=== PATIENT | male | born 1950 | race Caucasian/White ===

== ENCOUNTER 2017-01-03 18:19 | Emergency (ER) | payer BC, OTHER ==
[2017-01-03] MEDS ORDERED: SODIUM CHLORIDE 0.9% 1,000 ML IV STA ×3 (18:33→18:53)
[2017-01-03] MEDS ORDERED: MORPHINE SULFATE 4 MG/ML SYRINGE IV STA (18:33)
[2017-01-03] MEDS ORDERED: DIPH,PERTUS(ACELL)TETVAC-LF 0.5 ML VIAL IM ONE (18:34)
[2017-01-03 18:39] LABS: Glucose,Whole Blood 88 mg/dL (75-99)
--- NOTE | 2017-01-03 18:48 | XR ---
EXAMINATION TYPE: XR pelvis AP view DATE OF EXAM: 01/03/2017 6:45 PM COMPARISON: NONE HISTORY: Pain TECHNIQUE: Single view FINDINGS: Pelvic ring is intact. Proximal femurs and hip joints are intact. Sacroiliac joints are nor mal. IMPRESSION: Negative pelvis exam.
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
[2017-01-03] MEDS ORDERED: SODIUM CHLORIDE 0.9% 500 ML IV STA (18:53)
--- NOTE | 2017-01-03 18:58 | XR ---
EXAMINATION TYPE: XR chest 1V portable DATE OF EXAM: 01/03/2017 6:45 PM COMPARISON: 08/26/2015 HISTORY: Chest pain. Smoker. TECHNIQUE: Single frontal view of the chest is obtained. FINDINGS: Heart size is normal. There is coarsening of interstitial markings and more in the upper l obes. There are no hilar masses. Thoracic aorta is atheromatous. There are chest leads. There is no s ign of pleural effusion. IMPRESSION: Interstitial pulmonary infiltrates probably related to fibrosis that is worse than last exam. Normal heart.
[2017-01-03 19:03] LABS: Basophils % (A) 0 %; CH 32.7; CHCM 34.2; Eosinophils % (A) 0 %; HCT 47.7 % (39.0-53.0); HDW 2.52; HGB 16.2 gm/dL (13.0-17.5); Luc # (Auto) 0.16; Luc % (Auto) 1; Lymphocytes % (A) 6 %; MCH 32.7 pg (25.0-35.0); MCV 96.2 fL (80.0-100.0); Monocytes # (A) 0.7 k/uL (0-1.0); Monocytes % (A) 4 %; Neutrophils # (A) 15.2 k/uL (1.3-7.7); Neutrophils % (A) 89 %; RBC 4.95 m/uL (4.30-5.90); RDW 13.4 % (11.5-15.5); WBC 17.1 k/uL (3.8-10.6); WBC (Perox) 16.65
[2017-01-03 19:09] VITALS: TEMP 97.4
[2017-01-03 19:09] LABS: INR 1.1 (<1.1); Partial Thromboplastin Time 24.5 sec (22.0-30.0); Prothrombin Time 10.7 sec (9.0-12.0)
[2017-01-03 19:13] LABS: ALT 31 U/L (21-72); AST 28 U/L (17-59); Alcohol <10 mg/dL; Alkaline Phosphatase 113 U/L (38-126); Amylase 97 U/L (30-110); Anion Gap 10 mmol/L; Blood Urea Nitrogen 18 mg/dL (9-20); Calcium 9.3 mg/dL (8.4-10.2); Carbon Dioxide 24 mmol/L (22-30); Chloride 107 mmol/L (98-107); Glucose 94 mg/dL (74-99); Non-African American GFR(MDRD) >60 (>60 ml/min/1.73 sqM); Sodium 141 mmol/L (137-145); Total Bilirubin 1.7 mg/dL (0.2-1.3); Total Protein 7.5 g/dL (6.3-8.2)
[2017-01-03 19:22] LABS: Creatine Kinase 155 U/L (55-170)
[2017-01-03 19:35] LABS: Creatine Kinase MB 1.9 ng/mL (0.0-2.4); Troponin I <0.012 ng/mL (0.000-0.034)
[2017-01-03 19:43] VITALS: BP 136/71; PULSE 91; RESP 22
== END 2017-01-03 19:10 | disposition other institution (70) ==
LOC: EC 18:19
DX: T24.092A Burn of unspecified degree of multiple sites of left lower limb, except ankle and foot, initial encounter (principal); T24.091A Burn of unspecified degree of multiple sites of right lower limb, except ankle and foot, initial encounter; T21.05XA Burn of unspecified degree of buttock, initial encounter; T31.21 Burns involving 20-29% of body surface with 10-19% third degree burns; Y92.79 Other farm location as the place of occurrence of the external cause; Y99.0 Civilian activity done for income or pay; X08.8XXA Exposure to other specified smoke, fire and flames, initial encounter; Z86.73 Personal history of transient ischemic attack (TIA), and cerebral infarction without residual deficits; E78.5 Hyperlipidemia, unspecified; I25.2 Old myocardial infarction; F17.200 Nicotine dependence, unspecified, uncomplicated; Z23 Encounter for immunization; Z79.82 Long term (current) use of aspirin
CPT/HCPCS: 36415; 71010; 72170; 80053; 80320; 82150; 82550; 82553; 83690; 84484; 85025; 85610; 85730; 86850; 86900; 86901; 90471; 90715; 93005; 96360; 99291

== ENCOUNTER 2017-02-12 23:26 | Inpatient (IN) | payer MEDICARE, OTHER ==
[2017-02-12] MEDS ORDERED: SODIUM CHLORIDE 0.9% 1,000 ML IV STA (23:41)
[2017-02-13 00:15] LABS: ALT 24 U/L (21-72); AST 19 U/L (17-59); Alkaline Phosphatase 101 U/L (38-126); Anion Gap 8 mmol/L; Blood Urea Nitrogen 14 mg/dL (9-20); Carbon Dioxide 23 mmol/L (22-30); Chloride 107 mmol/L (98-107); Glucose 110 mg/dL (74-99); Magnesium 1.9 mg/dL (1.6-2.3); Non-African American GFR(MDRD) >60 (>60 ml/min/1.73 sqM); Potassium 4.4 mmol/L (3.5-5.1); Sodium 138 mmol/L (137-145); Total Bilirubin 0.6 mg/dL (0.2-1.3); Total Protein 7.4 g/dL (6.3-8.2)
[2017-02-13 00:18] LABS: Basophils % (A) 0 %; CH 32.1; CHCM 34.2; Eosinophils # (A) 0.1 k/uL (0-0.7); Eosinophils % (A) 1 %; HCT 36.2 % (39.0-53.0); HDW 2.96; Luc # (Auto) 0.27; Luc % (Auto) 3; Lymphocytes % (A) 30 %; MCH 31.3 pg (25.0-35.0); MCHC 33.2 g/dL (31.0-37.0); MCV 94.4 fL (80.0-100.0); Mean Platelet Volume 6.4; Monocytes # (A) 0.6 k/uL (0-1.0); Monocytes % (A) 6 %; Neutrophils % (A) 60 %; RBC 3.83 m/uL (4.30-5.90); WBC 10.1 k/uL (3.8-10.6); WBC (Perox) 9.36
[2017-02-13 00:24] LABS: Creatine Kinase 34 U/L (55-170)
--- NOTE | 2017-02-13 00:30 | ED ---
General Adult HPI - General Chief complaint: Shortness of Breath Stated complaint: SOB Time Seen by Provider: 02/12/17 23:41 Source: patient, RN notes reviewed, old records reviewed Mode of arrival: wheelchair Limitations: no limitations - History of Present Illness Initial comments: This is a 66-year-old male year fevers or shortness of breath cough and congestion. Patient has X remote history of smoking. Patient does admit to recent hospitalization greater than 1 week ago. Patient states that increasing shortness of breath and on and off chest pain that started today. Worse with exertion. Mild chills no noted fevers. No sweating. No travel history, again patient was recently hospitalized so multiple sick contacts - Related Data Home Medications Medication Instructions Recorded Confirmed Aspirin 325 mg PO HS 01/03/17 02/12/17 Atorvastatin [Lipitor] 10 mg PO HS 01/03/17 02/12/17 HYDROcodone/APAP 10-325MG [[place] 1 tab PO Q4H PRN 02/12/17 02/12/17 10-325] Allergies Allergy/AdvReac Type Severity Reaction Status Date / Time No Known Allergies Allergy Verified 02/12/17 23:53 Review of Systems ROS Statement: Those systems with pertinent positive or pertinent negative responses have been documented in the HPI. ROS Other: All systems not noted in ROS Statement are negative. Past Medical History Past Medical History: CVA/TIA, Hyperlipidemia, Hypertension, Myocardial Infarction ([place]) History of Any Multi-Drug Resistant Organisms: None Reported Past Surgical History: Appendectomy, Orthopedic Surgery Additional Past Surgical History / Comment(s): thumb Past Psychological History: No Psychological Hx Reported Smoking Status: Current every day smoker Past Alcohol Use History: None Reported Past Drug Use History: None Reported General Exam Limitations: no limitations General appearance: alert, in no apparent distress, anxious Head exam: Present: atraumatic, normocephalic, normal inspection Eye exam: Present: normal appearance, PERRL, EOMI. Absent: scleral icterus, conjunctival injection, periorbital swelling ENT exam: Present: normal exam, mucous membranes moist Neck exam: Present: normal inspection. Absent: tenderness, meningismus, lymphadenopathy Respiratory exam: Present: normal lung sounds bilaterally. Absent: respiratory distress, wheezes, rales, rhonchi, stridor Cardiovascular Exam: Present: regular rate, normal rhythm, normal heart sounds. Absent: systolic murmur, diastolic murmur, rubs, gallop, clicks GI/Abdominal exam: Present: soft, normal bowel sounds. Absent: distended, tenderness, guarding, rebound, rigid Extremities exam: Present: normal inspection, full ROM, normal capillary refill. Absent: tenderness, pedal edema, joint swelling, calf tenderness Back exam: Present: normal inspection Neurological exam: Present: alert, oriented X3, CN II-XII intact Psychiatric exam: Present: normal affect, normal mood Skin exam: Present: warm, dry, intact, normal color. Absent: rash Course Vital Signs 02/12/17 02/12/17 02/13/17 23:36 23:57 00:38 Temperature 98.3 F Pulse Rate 82 73 77 Respiratory 20 20 20 Rate Blood Pressure 129/68 140/87 O2 Sat by Pulse 99 99 Oximetry - Reevaluation(s) Reevaluation #1: 02/13/17 00:56 Patient's in no acute respiratory distress EKG Findings - EKG Comments: EKG Findings:: EKG shows normal sinus rhythm rate of 160, ND 90, QRS 394 Medical Decision Making - Medical Decision Making 66-year-old year for evaluation, history of smoking, coming with shortness of breath. Patient with cough congestion, positive pneumonia, patient recent hospitalization greater than 6 weeks left a week ago. Patient be admitted for broad-spectrum antibiotics nosocomial pneumonia and admitted to the hospital. - Lab Data Result diagrams: 02/12/17 23:50 02/12/17 23:50 Lab Results 02/12/17 02/12/17 02/12/17 Range/Units 23:50 23:50 23:50 WBC 10.1 (3.8-10.6) k/uL RBC 3.83 L (4.30-5.90) m/uL Hgb 12.0 L D (13.0-17.5) gm/dL Hct 36.2 L (39.0-53.0) % MCV 94.4 (80.0-100.0) fL MCH 31.3 (25.0-35.0) pg MCHC 33.2 (31.0-37.0) g/dL RDW 14.0 (11.5-15.5) % Plt Count 431 (150-450) k/uL Neutrophils % 60 % Lymphocytes % 30 % Monocytes % 6 % Eosinophils % 1 % Basophils % 0 % Neutrophils # 6.0 (1.3-7.7) k/uL Lymphocytes # 3.0 (1.0-4.8) k/uL Monocytes # 0.6 (0-1.0) k/uL Eosinophils # 0.1 (0-0.7) k/uL Basophils # 0.0 (0-0.2) k/uL Sodium 138 (137-145) mmol/L Potassium 4.4 (3.5-5.1) mmol/L Chloride 107 (98-107) mmol/L Carbon Dioxide 23 (22-30) mmol/L Anion Gap 8 mmol/L BUN 14 (9-20) mg/dL Creatinine 0.92 (0.66-1.25) mg/dL Est GFR (MDRD) Af Amer >60 (>60 ml/min/1.73 sqM) Est GFR (MDRD) Non-Af >60 (>60 ml/min/1.73 sqM) Glucose 110 H (74-99) mg/dL Calcium 9.0 (8.4-10.2) mg/dL Magnesium 1.9 (1.6-2.3) mg/dL Total Bilirubin 0.6 (0.2-1.3) mg/dL AST 19 (17-59) U/L ALT 24 (21-72) U/L Alkaline Phosphatase 101 (38-126) U/L Total Creatine Kinase 34 L (55-170) U/L CK-MB (CK-2) 0.4 (0.0-2.4) ng/mL CK-MB (CK-2) Rel Index 1.2 Troponin I <0.012 (0.000-0.034) ng/mL NT-Pro-B Natriuret Pep pg/mL Total Protein 7.4 (6.3-8.2) g/dL Albumin 3.4 L (3.5-5.0) g/dL 02/12/17 Range/Units 23:50 WBC (3.8-10.6) k/uL RBC (4.30-5.90) m/uL Hgb (13.0-17.5) gm/dL Hct (39.0-53.0) % MCV (80.0-100.0) fL MCH (25.0-35.0) pg MCHC (31.0-37.0) g/dL RDW (11.5-15.5) % Plt Count (150-450) k/uL Neutrophils % % Lymphocytes % % Monocytes % % Eosinophils % % Basophils % % Neutrophils # (1.3-7.7) k/uL Lymphocytes # (1.0-4.8) k/uL Monocytes # (0-1.0) k/uL Eosinophils # (0-0.7) k/uL Basophils # (0-0.2) k/uL Sodium (137-145) mmol/L Potassium (3.5-5.1) mmol/L Chloride (98-107) mmol/L Carbon Dioxide (22-30) mmol/L Anion Gap mmol/L BUN (9-20) mg/dL Creatinine (0.66-1.25) mg/dL Est GFR (MDRD) Af Amer (>60 ml/min/1.73 sqM) Est GFR (MDRD) Non-Af (>60 ml/min/1.73 sqM) Glucose (74-99) mg/dL Calcium (8.4-10.2) mg/dL Magnesium (1.6-2.3) mg/dL Total Bilirubin (0.2-1.3) mg/dL AST (17-59) U/L ALT (21-72) U/L Alkaline Phosphatase (38-126) U/L Total Creatine Kinase (55-170) U/L CK-MB (CK-2) (0.0-2.4) ng/mL CK-MB (CK-2) Rel Index Troponin I (0.000-0.034) ng/mL NT-Pro-B Natriuret Pep 622 pg/mL Total Protein (6.3-8.2) g/dL Albumin (3.5-5.0) g/dL - Radiology Data Radiology results: report reviewed (Chest x-ray positive for pneumonia), image reviewed Disposition Clinical Impression: Nosocomial pneumonia Disposition: ADMITTED IP TO THIS HOSP Condition: Fair Referrals: None,Stated [Primary Care Provider] - 1-2 days
[2017-02-13 00:37] LABS: Creatine Kinase MB 0.4 ng/mL (0.0-2.4); Troponin I <0.012 ng/mL (0.000-0.034)
--- NOTE | 2017-02-13 00:46 | XR ---
EXAM: XR Chest, 2 Views CLINICAL HISTORY: Reason: difficulty breathing TECHNIQUE: Frontal and lateral views of the chest. COMPARISON: 01/03/17. FINDINGS: Lungs: Patchy coarse interstitial and airspace opacities. Pleural space: Unremarkable. No pneumothorax. Heart: Stable cardiomediastinal silhouette. Mediastinum: See above. Bones/joints: Stable. IMPRESSION: Patchy coarse interstitial and airspace opacities. Correlate clinically for acute on chronic inflammatory/infectious process or edema.
[2017-02-13] MEDS ORDERED: IPRATROPIUM-ALBUTEROL 3 ML NEB INHALATION STA (00:53)
[2017-02-13] MEDS ORDERED: IPRATROPIUM-ALBUTEROL 3 ML NEB INHALATION PRN (00:53)
[2017-02-13] MEDS ORDERED: LEVOFLOXACIN 750MG-D5W PMX 750 MG in DEXTROSE/WATER 1 150ML.BAG IVPB STA (00:53)
[2017-02-13] MEDS ORDERED: PNEUMONIA PROTOCOL UTILIZED 1 EACH MISC PO PRN (00:53)
[2017-02-13] MEDS ORDERED: PIPERACILLIN-TAZOBACTAM 3.375 GM in DEXTROSE/WATER 1 50ML.BAG IVPB STA (00:53)
[2017-02-13 00:55] LABS: Partial Thromboplastin Time 26.5 sec (22.0-30.0); Prothrombin Time 9.8 sec (9.0-12.0)
[2017-02-13] MEDS: SODIUM CHLORIDE 0.9% 1,000 ML IV SCH ×3 (02:43→22:28)
[2017-02-13] MEDS: ENOXAPARIN 40 MG/0.4 ML SYRINGE SQ SCH (08:40)
[2017-02-13] MEDS: HYDROcodone/APAP 10-325MG 1 EACH TAB PO PRN ×4 (08:41→22:22)
[2017-02-13] MEDS: LORATADINE 10 MG TAB PO SCH (09:35)
[2017-02-13] MEDS: DOCUSATE 100 MG CAP PO SCH ×2 (09:35→22:24)
[2017-02-13] MEDS: PIPERACILLIN-TAZOBACTAM 3.375 GM in DEXTROSE/WATER 1 50ML.BAG IVPB SCH ×2 (11:53→22:23)
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
[2017-02-13] MEDS ORDERED: ASPIRIN 325 MG TAB PO SCH (21:00)
[2017-02-13] MEDS ORDERED: ATORVASTATIN 10 MG TAB PO SCH (21:00)
[2017-02-14] MEDS: PIPERACILLIN-TAZOBACTAM 3.375 GM in DEXTROSE/WATER 1 50ML.BAG IVPB SCH ×3 (03:56→12:16)
[2017-02-14] MEDS: HYDROcodone/APAP 10-325MG 1 EACH TAB PO PRN ×3 (04:02→12:14)
[2017-02-14] MEDS: SODIUM CHLORIDE 0.9% 1,000 ML IV SCH (08:15)
[2017-02-14] MEDS: LORATADINE 10 MG TAB PO SCH (08:21)
[2017-02-14] MEDS: ENOXAPARIN 40 MG/0.4 ML SYRINGE SQ SCH (08:21)
[2017-02-14] MEDS: DOCUSATE 100 MG CAP PO SCH (08:22)
[2017-02-14 10:43] VITALS: BMI 23.0
[2017-02-14] MEDS ORDERED: LEVOFLOXACIN 750 MG TAB PO STA (12:07)
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
--- NOTE | 2017-02-14 14:12 | XR ---
EXAMINATION TYPE: XR chest 2V DATE OF EXAM: 02/14/2017 2:03 PM COMPARISON: 02/13/2017 TECHNIQUE: PA and lateral views submitted. HISTORY: Shortness of breath FINDINGS: Patchy persistent predominantly interstitial coarsening is seen bilaterally greater in the upper lung zones. Emphysematous changes are suggested in the apices of the lungs greater on the right. No acute infiltrate. Curvature of the spine and atherosclerotic change aorta. Degenerative change of the spine. IMPRESSION: 1. Stable coarsened interstitium correlate for chronic interstitial lung disease with suspected emphy sematous changes involving the lung apices. No consolidative pneumonia. Findings could been the basis of chronic interstitial lung disease such as fibrosis. Correlate clinically.
[2017-02-14 16:09] VITALS: BP 110/58; PULSE 81; RESP 20; TEMP 97.8
[2017-02-14] MEDS ORDERED: LEVOFLOXACIN 750MG-D5W PMX 750 MG in DEXTROSE/WATER 1 150ML.BAG IVPB SCH (23:00)
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
== END 2017-02-14 16:23 | disposition home health service (06) | DRG 190 ==
LOC: EC 23:26 → 5MS5E 02-13 00:53
PROVIDERS: ADMIT Family Medicine; ATTEND Family Medicine
DX: J44.0 Chronic obstructive pulmonary disease with (acute) lower respiratory infection (principal); J18.9 Pneumonia, unspecified organism; R00.0 Tachycardia, unspecified; I10 Essential (primary) hypertension; I25.2 Old myocardial infarction; E78.5 Hyperlipidemia, unspecified; T24.201D Burn of second degree of unspecified site of right lower limb, except ankle and foot, subsequent encounter; T24.202D Burn of second degree of unspecified site of left lower limb, except ankle and foot, subsequent encounter; T24.302D Burn of third degree of unspecified site of left lower limb, except ankle and foot, subsequent encounter; T24.301D Burn of third degree of unspecified site of right lower limb, except ankle and foot, subsequent encounter; T21.25XD Burn of second degree of buttock, subsequent encounter; T21.35XD Burn of third degree of buttock, subsequent encounter; R68.83 Chills (without fever); Z79.899 Other long term (current) drug therapy; Z86.73 Personal history of transient ischemic attack (TIA), and cerebral infarction without residual deficits; Z79.891 Long term (current) use of opiate analgesic; Z79.82 Long term (current) use of aspirin; Z87.891 Personal history of nicotine dependence; Z90.49 Acquired absence of other specified parts of digestive tract; Z98.890 Other specified postprocedural states; Z71.3 Dietary counseling and surveillance; X01 Exposure to uncontrolled fire, not in building or structure; Y95 Nosocomial condition
CPT/HCPCS: 36415; 71020; 80053; 82550; 82553; 83735; 83880; 84484; 85025; 85379; 85610; 85730; 87040; 93005; 96360; 99285

== ENCOUNTER 2017-03-01 21:40 | Emergency (ER) | payer MEDICARE, OTHER ==
[2017-03-01 23:28] LABS: Basophils # (A) 0.1 k/uL (0-0.2); Basophils % (A) 1 %; CH 30.6; CHCM 32.8; Eosinophils # (A) 0.4 k/uL (0-0.7); Eosinophils % (A) 4 %; HCT 36.5 % (39.0-53.0); HDW 2.81; HGB 11.9 gm/dL (13.0-17.5); Luc # (Auto) 0.28; Luc % (Auto) 3; Lymphocytes # (A) 2.9 k/uL (1.0-4.8); Lymphocytes % (A) 27 %; MCH 30.4 pg (25.0-35.0); MCHC 32.4 g/dL (31.0-37.0); MCV 93.6 fL (80.0-100.0); Mean Platelet Volume 6.2; Monocytes # (A) 0.7 k/uL (0-1.0); Monocytes % (A) 7 %; Neutrophils # (A) 6.4 k/uL (1.3-7.7); Neutrophils % (A) 59 %; WBC 10.8 k/uL (3.8-10.6); WBC (Perox) 11.38
[2017-03-01 23:36] LABS: Prothrombin Time 10.1 sec (9.0-12.0)
[2017-03-01 23:41] LABS: ALT 20 U/L (21-72); AST 16 U/L (17-59); Alkaline Phosphatase 101 U/L (38-126); Anion Gap 13 mmol/L; Blood Urea Nitrogen 14 mg/dL (9-20); Carbon Dioxide 19 mmol/L (22-30); Chloride 108 mmol/L (98-107); Glucose 107 mg/dL (74-99); Non-African American GFR(MDRD) >60 (>60 ml/min/1.73 sqM); Potassium 4.5 mmol/L (3.5-5.1); Sodium 140 mmol/L (137-145); Total Bilirubin 0.4 mg/dL (0.2-1.3); Total Protein 7.5 g/dL (6.3-8.2)
[2017-03-01 23:48] LABS: Creatine Kinase 35 U/L (55-170)
--- NOTE | 2017-03-01 23:51 | XR ---
EXAM: XR Chest, 2 Views CLINICAL HISTORY: Reason: difficulty breathing TECHNIQUE: Frontal and lateral views of the chest. COMPARISON: 02/14/17, 02/13/17, 01/03/17. FINDINGS: Lungs: There is again coarsening of the interstitial markings throughout, along with mild biapical pleural-parenchymal thickening. No superimposed infiltrate. Pleural space: Unremarkable. No pneumothorax. Heart: Unremarkable. No cardiomegaly. Mediastinum: Stable. Mild aortic arch calcification. Bones/joints: Stable including degenerative changes. IMPRESSION: Stable radiographic appearance of the chest including previously noted prominent interstitial markings, which again suggests a component of chronic interstitial lung disease. No new superimposed acute process seen.
[2017-03-01] MEDS ORDERED: ALBUTEROL NEBULIZED 2.5 MG/3 ML INHALATION STA (23:55)
[2017-03-01 23:59] LABS: Creatine Kinase MB 0.5 ng/mL (0.0-2.4)
[2017-03-02 00:01] LABS: Troponin I <0.012 ng/mL (0.000-0.034)
[2017-03-02 00:14] VITALS: RESP 18
[2017-03-02] MEDS ORDERED: predniSONE 20 MG TAB PO STA (01:47)
--- NOTE | 2017-03-02 01:47 | ED ---
SOB HPI - General Chief Complaint: Shortness of Breath Stated Complaint: SOB Time Seen by Provider: 03/01/17 22:46 Source: patient Mode of arrival: ambulatory Limitations: no limitations - History of Present Illness Initial Comments: This patient is 66-year-old man who presents to be evaluated for shortness of breath and cough. Patient states this been going on for couple of days now. Patient is concerned about possibility of pneumonia and states that he had just been treated for pneumonia. Patient states that he did quit smoking approximately 10 weeks ago after he had been admitted in the hospital for severe sidhu to his legs. Patient is denying fever or chills, pain in the chest , New pain or swelling in the legs. MD Complaint: shortness of breath, cough -: days(s) Severity: moderate Consistency: constant Improves With: nothing Worsens With: nothing Associated Symptoms: cough Treatments Prior to Arrival: none - Related Data Home Oxygen Therapy: No Home Medications Medication Instructions Recorded Confirmed Atorvastatin [Lipitor] 10 mg PO HS 01/03/17 03/01/17 HYDROcodone/APAP 10-325MG [Schurz 1 tab PO Q4H PRN 02/12/17 03/01/17 10-325] Docusate [Colace] 100 mg PO BID 02/13/17 03/01/17 Loratadine [Claritin] 10 mg PO DAILY 02/13/17 03/01/17 Previous Rx's Medication Instructions Recorded Albuterol Inhaler [Ventolin Hfa 1 - 2 puff INHALATION Q6HR PRN #1 03/02/17 Inhaler] inhaler predniSONE 20 mg PO BID #8 tab 03/02/17 Allergies Allergy/AdvReac Type Severity Reaction Status Date / Time No Known Allergies Allergy Verified 03/01/17 23:15 Review of Systems ROS Statement: Those systems with pertinent positive or pertinent negative responses have been documented in the HPI. ROS Other: All systems not noted in ROS Statement are negative. Constitutional: Denies: fever, chills, weakness Respiratory: Reports: cough, dyspnea, wheezes. Denies: hemoptysis, stridor Cardiovascular: Denies: chest pain, palpitations, orthopnea, edema, paroxysmal nocturnal dyspnea Gastrointestinal: Denies: abdominal pain, nausea, vomiting Genitourinary: Denies: dysuria Musculoskeletal: Denies: back pain Skin: Denies: rash Neurological: Denies: headache Past Medical History Past Medical History: CVA/TIA, Hyperlipidemia, Hypertension History of Any Multi-Drug Resistant Organisms: None Reported Past Surgical History: Appendectomy, Orthopedic Surgery Additional Past Surgical History / Comment(s): thumb Past Psychological History: No Psychological Hx Reported Smoking Status: Former smoker Past Alcohol Use History: None Reported Past Drug Use History: None Reported General Exam Limitations: no limitations General appearance: alert, in no apparent distress Head exam: Present: atraumatic, normocephalic Eye exam: Present: normal appearance. Absent: scleral icterus, conjunctival injection Respiratory exam: Present: wheezes. Absent: respiratory distress, rales, rhonchi, stridor, chest wall tenderness, decreased breath sounds, prolonged expiratory Cardiovascular Exam: Present: regular rate, normal rhythm, normal heart sounds. Absent: systolic murmur, diastolic murmur, rubs, gallop GI/Abdominal exam: Present: soft. Absent: tenderness, guarding, rebound, mass, pulsatile mass, hernia Extremities exam: Present: normal inspection, normal capillary refill, other ( Patient has had skin graft to the left leg and a harvest site from the right leg. There is no abnormal warmth or erythema, and the sites do appear to be healing without secondary infection. There is no calf tenderness or leg edema.) . Absent: pedal edema, calf tenderness Back exam: Absent: CVA tenderness (R), CVA tenderness (L) Neurological exam: Present: alert Skin exam: Present: warm, dry, intact, normal color. Absent: rash, cyanosis, diaphoretic, erythema, petechiae, pallor, mottled Course Vital Signs 03/01/17 03/01/17 03/02/17 22:14 23:10 00:13 Temperature 97.9 F 97.9 F Pulse Rate 83 76 Respiratory 22 20 18 Rate Blood Pressure 128/77 142/72 O2 Sat by Pulse 97 97 Oximetry 03/02/17 03/02/17 03/02/17 00:18 00:27 01:02 Temperature Pulse Rate 83 86 88 Respiratory 18 Rate Blood Pressure 133/80 O2 Sat by Pulse 97 Oximetry 03/02/17 02:38 Temperature 97.5 F L Pulse Rate 89 Respiratory 18 Rate Blood Pressure 111/63 O2 Sat by Pulse 97 Oximetry Medical Decision Making - Lab Data Result diagrams: 03/01/17 23:10 03/01/17 23:10 Lab Results 03/01/17 03/01/17 03/01/17 Range/Units 23:10 23:10 23:10 WBC 10.8 H (3.8-10.6) k/uL RBC 3.90 L (4.30-5.90) m/uL Hgb 11.9 L (13.0-17.5) gm/dL Hct 36.5 L (39.0-53.0) % MCV 93.6 (80.0-100.0) fL MCH 30.4 (25.0-35.0) pg MCHC 32.4 (31.0-37.0) g/dL RDW 14.0 (11.5-15.5) % Plt Count 394 (150-450) k/uL Neutrophils % 59 % Lymphocytes % 27 % Monocytes % 7 % Eosinophils % 4 % Basophils % 1 % Neutrophils # 6.4 (1.3-7.7) k/uL Lymphocytes # 2.9 (1.0-4.8) k/uL Monocytes # 0.7 (0-1.0) k/uL Eosinophils # 0.4 (0-0.7) k/uL Basophils # 0.1 (0-0.2) k/uL PT (9.0-12.0) sec INR (<1.1) APTT (22.0-30.0) sec D-Dimer (<0.60) mg/L FEU Sodium 140 (137-145) mmol/L Potassium 4.5 (3.5-5.1) mmol/L Chloride 108 H (98-107) mmol/L Carbon Dioxide 19 L (22-30) mmol/L Anion Gap 13 mmol/L BUN 14 (9-20) mg/dL Creatinine 0.80 (0.66-1.25) mg/dL Est GFR (MDRD) Af Amer >60 (>60 ml/min/1.73 sqM) Est GFR (MDRD) Non-Af >60 (>60 ml/min/1.73 sqM) Glucose 107 H (74-99) mg/dL Calcium 9.0 (8.4-10.2) mg/dL Total Bilirubin 0.4 (0.2-1.3) mg/dL AST 16 L (17-59) U/L ALT 20 L (21-72) U/L Alkaline Phosphatase 101 (38-126) U/L Total Creatine Kinase 35 L (55-170) U/L CK-MB (CK-2) 0.5 (0.0-2.4) ng/mL CK-MB (CK-2) Rel Index 1.4 Troponin I <0.012 (0.000-0.034) ng/mL NT-Pro-B Natriuret Pep pg/mL Total Protein 7.5 (6.3-8.2) g/dL Albumin 3.7 (3.5-5.0) g/dL 03/01/17 03/01/17 03/01/17 Range/Units 23:10 23:10 23:10 WBC (3.8-10.6) k/uL RBC (4.30-5.90) m/uL Hgb (13.0-17.5) gm/dL Hct (39.0-53.0) % MCV (80.0-100.0) fL MCH (25.0-35.0) pg MCHC (31.0-37.0) g/dL RDW (11.5-15.5) % Plt Count (150-450) k/uL Neutrophils % % Lymphocytes % % Monocytes % % Eosinophils % % Basophils % % Neutrophils # (1.3-7.7) k/uL Lymphocytes # (1.0-4.8) k/uL Monocytes # (0-1.0) k/uL Eosinophils # (0-0.7) k/uL Basophils # (0-0.2) k/uL PT 10.1 (9.0-12.0) sec INR 1.0 (<1.1) APTT 25.0 (22.0-30.0) sec D-Dimer 0.38 (<0.60) mg/L FEU Sodium (137-145) mmol/L Potassium (3.5-5.1) mmol/L Chloride (98-107) mmol/L Carbon Dioxide (22-30) mmol/L Anion Gap mmol/L BUN (9-20) mg/dL Creatinine (0.66-1.25) mg/dL Est GFR (MDRD) Af Amer (>60 ml/min/1.73 sqM) Est GFR (MDRD) Non-Af (>60 ml/min/1.73 sqM) Glucose (74-99) mg/dL Calcium (8.4-10.2) mg/dL Total Bilirubin (0.2-1.3) mg/dL AST (17-59) U/L ALT (21-72) U/L Alkaline Phosphatase (38-126) U/L Total Creatine Kinase (55-170) U/L CK-MB (CK-2) (0.0-2.4) ng/mL CK-MB (CK-2) Rel Index Troponin I (0.000-0.034) ng/mL NT-Pro-B Natriuret Pep 214 pg/mL Total Protein (6.3-8.2) g/dL Albumin (3.5-5.0) g/dL - EKG Data -: EKG Interpreted by Me EKG shows normal: sinus rhythm, axis (Normal), intervals (Normal), QRS complexes (Normal), ST-T waves (Normal) Rate: normal (Rate 77 bpm) Interpretation: normal EKG Disposition Clinical Impression: COPD (chronic obstructive pulmonary disease) Disposition: HOME SELF-CARE Condition: Fair Instructions: COPD (Chronic Obstructive Pulmonary Disease) (ED) Prescriptions: Albuterol Inhaler [Ventolin Hfa Inhaler] 1 - 2 puff INHALATION Q6HR PRN #1 inhaler PRN Reason: Wheezing predniSONE 20 mg PO BID #8 tab Referrals: Ovi Tay MD [Primary Care Provider] - 1-2 days
[2017-03-02 02:40] VITALS: BP 111/63; PULSE 89; TEMP 97.5
== END 2017-03-02 02:48 | disposition home or self-care (01) ==
LOC: EC 21:40
DX: J44.9 Chronic obstructive pulmonary disease, unspecified (principal); E78.5 Hyperlipidemia, unspecified; Z87.891 Personal history of nicotine dependence; Z79.899 Other long term (current) drug therapy
CPT/HCPCS: 36415; 94640; 93005; 85379; 83880; 80053; 82550; 82553; 84484; 85025; 85610; 85730; 71020; 99285; J7512

== ENCOUNTER → 2017-12-16 | Outpatient (CLI) | payer MEDICARE, OTHER ==
--- NOTE | 2017-12-16 21:55 | CTL ---
EXAMINATION TYPE: CT Low Dose Lung DATE OF EXAM ORDERED: 12/16/2017 HISTORY: . Lung cancer screening CT DLP: 126.[address] CTDI: 3.3 mGy Automated exposure control for dose reduction was used. SCREENING VISIT: Initial COMPARISON: None TECHNIQUE: Low dose computed tomography scan was performed through the chest at 1 mm thick sections a nd reconstructed images in the coronal plane at [address] DIAGNOSTIC QUALITY: Satisfactory FINDINGS: LUNG NODULES: Present, detailed below: Left apical nodule measuring 2.7 x 2.1 cm on lung windows. Series 4 image 60. Right apical posterior nodule measuring 2.4 x 2.3 cm. Series 4 image 60. This extends through the rig ht lung along the major fissure to the level of the gilmar within the periphery of the right lung. Th is is estimated to measure 4.8 cm in craniocaudal dimension. LUNGS: COPD: Severity: Severe Fibrosis: Severity: Mild Lymph nodes: Moderate scattered lymph nodes approaching 1 cm in the pretracheal space. Right hilar ad enopathy difficult to exclude. Other findings: None RIGHT PLEURAL SPACE: Effusion: None Calcification: None Thickening: None Pneumothorax: None LEFT PLEURAL SPACE: Effusion: None Calcification: None Thickening: None Pneumothorax: None HEART: Heart Size: Normal Coronary calcification: Mild Pericardial effusion: None OTHER FINDINGS: Upper abdomen: Unremarkable Bony thorax: Normal Supraclavicular region: Normal Other: Ascending thoracic aorta at the level the main pulmonary artery is 3.8 cm the main pulmonary a rtery the bifurcation is 2.7 cm. IMPRESSION: Suspicious findings Follow up with physician: Yes FOLLOW UP CT CHEST RECOMMENDATION: Follow-up standard CT chest with contrast for additional evaluatio n. This patient may benefit from PET CT to evaluate for possible apical neoplasms. CT LUNG RAD: Lung-Rad 4B Suspicious
== END | disposition home or self-care (01) ==
LOC: RADCTMAIN 17:34
PROVIDERS: ATTEND Internal Medicine
DX: Z12.2 Encounter for screening for malignant neoplasm of respiratory organs (principal); Z87.891 Personal history of nicotine dependence

== ENCOUNTER → 2017-12-27 | Outpatient (CLI) | payer MEDICARE, OTHER ==
[2017-12-27 14:52] LABS: Blood Urea Nitrogen 13 mg/dL (9-20)
--- NOTE | 2017-12-27 15:51 | CT ---
EXAMINATION TYPE: CT chest w con DATE OF EXAM: 12/27/2017 COMPARISON: NONE HISTORY: abnormal findings on low dose lung CT CT DLP: 411.1 mGycm. Automated Exposure Control for Dose Reduction was Utilized. TECHNIQUE: CT scan of the thorax is performed following with IV Contrast, patient injected with 100 mL of Omnipaque 300. FINDINGS: LUNGS: Focal areas of nodularity are seen at the lung apices bilaterally in the right measuring 1.2 x 1.4 x 2.0 cm and on the left measuring 1.6 x 1.4 x 0.8 cm on series 3 and 4 image 11 and series 6 im age 67. Additional focal areas of nodularity are seen within the upper lobes measuring 1.4 x 1.0 x 1. 1 cm on series 3 image 15 and series 6 image 61 on the right and measuring 0.6 x 1.0 x 0.7 cm on seri es 3 image 16 and series 6 image 57 on the left. These elongate and are peripheral favored to represe nt areas of fibrosis however underlying pulmonary nodule is possible. Extensive paraseptal bullous em physematous changes are seen throughout the lungs most exaggerated at the lung apices. Lastly a 0.7 x 0.6 x 0.5 cm right upper lobe anterior inferior nodularity is seen on series 4 image 29 and series 6 image 34 as well as series 7 image 23 just superior to the minor fissure. More rounded pulmonary nodule measuring 4 mm is seen at the right lung base on series 4 image 41. Add itional pulmonary nodule is seen in a subpleural location on series 4 image 31 within the right lower lobe measuring 4 mm. Left upper lobe 3 mm pulmonary nodule is present on series 4 image 18. Probable 4 mm pulmonary nodule within the left upper lobe is seen adjacent to pulmonary artery and series 4 i mage 22. On image 24 there is a 6 mm solid pulmonary nodule within the left midlung. 5 mm pulmonary n odule is seen on image 34 on the left in the lower lobe. 2 mm and 3 mm pulmonary nodules are present on series 4 image 38 and 40 respectively. Additional medial left lower lobe 5 mm pulmonary nodules pr esent on image 41. Other scattered 2 to 3 mm nodules are seen bilaterally such as on image 15 in the left and image 25 on the right. No focal consolidation, pneumothorax or pleural effusion is seen. The tracheobronchial tree is patent . MEDIASTINUM: Right hilar adenopathy measures 1.9 x 1.9 cm and subcarinal adenopathy measures up to 1. 6 cm in short axis. Prevascular adenopathy measures 1.0 cm in short axis and other clustered right pa ratracheal, left paratracheal and pretracheal prominent lymph nodes are seen measuring up to 9 mm in short axis. No axillary adenopathy is seen. Heart is within normal limits of size. Ascending thoracic aorta is within normal limits measuring 3.2 cm. Moderate three-vessel coronary artery calcifications are noted. OTHER: Incidental note of a right upper pole subcentimeter renal cyst. Mild multilevel degenerative c hanges of the thoracic spine are seen. IMPRESSION: 1. Multiple areas of nodularity are seen within the lung apices bilaterally and peripherally, which m ay represent areas of pleural parenchymal scarring and fibrosis as the along the on coronal and sagit krysten images, however underlying mass is possible given this patient's high risk extensive bullous emph ysematous disease. Further evaluation with PET/CT is recommended. 2. Multiple bilateral subcentimeter pulmonary nodules for which surveillance is recommended as these are below the threshold of PET CT. 3. Right hilar and mediastinal adenopathy, which may be reactive or neoplastic and can be assessed on the above recommended PET/CT.
== END | disposition home or self-care (01) ==
LOC: RADCTMAIN 14:21
PROVIDERS: ATTEND Internal Medicine
DX: R91.1 Solitary pulmonary nodule (principal); R59.0 Localized enlarged lymph nodes
CPT/HCPCS: 82565; 84520; 71260; 36415; Q9967

== ENCOUNTER → 2018-01-18 | Outpatient (CLI) | payer MEDICARE, OTHER ==
--- NOTE | 2018-01-19 20:20 | PE ---
EXAMINATION TYPE: PET CT fusion skull to thigh DATE OF EXAM: 01/18/2018 COMPARISON: CT chest 12/27/2017 Prior PET/CT: None HISTORY: Pulmonary nodules bilateral lung miguel TECHNIQUE: Following the intravenous administration of 12.52 mCi of F-18 FDG, whole body images are performed from the skull base to the midthigh. Images are reviewed on the computer in the coronal, a xial, and sagittal planes. Reconstructed rotating images are created on independent workstation and reviewed on the computer. A localization and attenuation correction CT is performed in conjunction with the PET scan. DLP: 474.8 mGycm SCAN: Initial Blood glucose: 100 mg/dL Average Mediastinum SUV: 1.70 Average Liver SUV: 1.82 FINDINGS: NECK: No abnormal uptake THORAX: There are scattered densities within the upper lung miguel. These have elevated SUV values. E xample images include posterior medial right apex. PET image 70, SUV of 3.1. Uptake within a mass wit hin a posterior lateral right upper lobe. PET image 70, SUV 3.3. At the same level on the right lung the SUV measures 3.08. Left infrahilar mass is uptake. PET image 90. SUV 4.01. Right infrahilar region could be a tiny lymph node. PET image 93. SUV 2.9. Within the left infrahila r region there is increased uptake in the small nodularity which could be a metastatic lymph node. PE T image 89, SUV 4.46. Some vague intermediate signal appears to be within the mediastinum. Focal hot nodules associated wit h lymph nodes are not otherwise identified. Early metastatic disease is not entirely excluded. Obviou s metastatic disease within the nodes are present is not evident. Example image aortopulmonic window lymph node image 80 has an SUV value of 2.1. An enlarged right hilar lymph node has intermediate SUV 1.45. PET image 85. ABDOMEN: No abnormal uptake PELVIS: No abnormal uptake OSSEOUS STRUCTURES: No abnormal uptake LOCALIZATION CT: Entered lymph nodes are identified within the mediastinum. Enlarged by CT criteria i s not identified. There is a enlarged right hilar lymph node which has intermediate SUV of 1.45. COMPARISON: Lung findings appear stable IMPRESSION: 1. Nodularities within the bilateral lung miguel have elevated SUV values into the range suspicious f or neoplasm. . Metastatic disease as well as a metachronous primaries can be considered. 2. Mediastinal uptake is less than expected for typical metastasis. A left infrahilar lymph node may be hot, but not enlarged by CT criteria. 3. Distant metastases outside of the thorax are not identified.
== END | disposition home or self-care (01) ==
LOC: RADPETMAIN 09:54
PROVIDERS: ATTEND Internal Medicine
DX: R91.8 Other nonspecific abnormal finding of lung field (principal)
CPT/HCPCS: 78815; A9552

== ENCOUNTER 2018-02-12 08:32 | Day surgery (SDC) | payer MEDICARE, OTHER ==
[2018-02-06 14:03] VITALS: BMI 33.6
[~2018-02-12 08:32] MED LIST: DEXAMETHASONE SOD PHOSPHATE 10 MG/ML 1 ML VIAL IV ONE; LACTATED RINGERS 1,000 ML IV SCH; LIDOCAINE 1% 20 ML VIAL (10MG/ML) FOR IV START INTRADERMA PRN; MORPHINE SULFATE 2 MG/ML SYRINGE IV PRN; ONDANSETRON ODT 4 MG TAB PO ONE; Pre Op ABX Message 1 EACH MISC MISCELLANE ONE
[2018-02-12 08:57] VITALS: RESP 18
[2018-02-12] MEDS ORDERED: ONDANSETRON 4 MG/2 ML VIAL IVP ONE (09:21)
--- NOTE | 2018-02-12 10:44 | CT ---
EXAMINATION TYPE: CT Chest russel Gutierrez Protocol DATE OF EXAM: 02/12/2018 COMPARISON: 01/18/2018, 12/27/2017 HISTORY: Bronchial navigation CT DLP: 492 mGycm Automated exposure control for dose reduction was used. FINDINGS: Focal areas of nodularity are seen at the lung apices bilaterally in the right measuring 1.2 x 1.4 x 2.0 cm and on the left measuring 1.6 x 1.4 x 0.8 cm. Additional focal areas of nodularity are seen within the upper lobes measuring 1.4 x 1.0 x 1.1 cm on the right and measuring 0.6 x 1.0 x 0.7 cm on series on the left. Extensive paraseptal bullous emphysematous changes are seen throughout the lungs most exaggerated at the lung apices. There also appears to be evidence of interstitial thickening correlate for chronic interstitial lung disease. Coronary artery calcification noted. NODULES: There is a 0.7 x 0.6 x 0.5 cm right upper lobe anterior inferior nodularity is seen just superior to the minor fissure. More rounded pulmonary nodule measuring 4 mm is seen at the right lung base is sta ble. Additional pulmonary nodule is seen in a subpleural location within the right lower lobe measuring 4 mm. Left upper lobe 3 mm pulmonary nodule is present. Probable 4 mm pulmonary nodule within the left upper lobe is seen adjacent to pulmonary artery. There is a 6 mm solid pulmonary nodule within the left midlung. 5 mm pulmonary nodule is seen on the left in the lower lobe. 2 mm and 3 mm pulmonary nodules are present stable. Additional medial left lower lobe 5 mm pulmonary nodules present is stable. Other scattered 2 to 3 mm nodules are seen bilaterally. MEDIASTINUM: Right hilar adenopathy measures 1.9 x 1.9 cm and subcarinal adenopathy measures up to 1. 6 cm in short axis. Prevascular adenopathy measures 1.0 cm in short axis and other clustered right pa ratracheal, left paratracheal and pretracheal prominent lymph nodes are seen measuring up to 9 mm in short axis. No axillary adenopathy is seen. Heart is within normal limits of size. Ascending thoracic aorta is within normal limits measuring 3.2 cm. Moderate three-vessel coronary artery calcifications are noted. OTHER: Mild multilevel degenerative changes of the thoracic spine are seen. IMPRESSION: STABLE BILATERAL PULMONARY NODULES AND ADENOPATHY UNCHANGED FROM THE PREVIOUS EXAM CORRELATE FOR HIST ORY OF MALIGNANCY.
[2018-02-12] MEDS ORDERED: MIDAZOLAM 2 MG/2 ML VIAL ONE (11:16)
[2018-02-12] MEDS ORDERED: PHENYLEPHRINE-0.9% NACL SYG 1 MG/10 ML SYRINGE ONE (11:16)
[2018-02-12] MEDS ORDERED: LIDOCAINE 1% INJ 10MG/ML (20 ML MDV) ONE (11:16)
[2018-02-12] MEDS ORDERED: fentaNYL (PF) 50 MCG/ML 2 ML AMP ONE (11:16)
[2018-02-12] MEDS ORDERED: PROPOFOL 10 MG/ML 20 ML VIAL IV ONE (11:16)
[2018-02-12] MEDS ORDERED: SUCCINYLCHOLINE CHLORIDE 100 MG/5 ML SYR IV ONE (11:16)
[2018-02-12] MEDS ORDERED: KETAMINE 10 MG/ML 20 ML VIAL ONE (11:16)
[2018-02-12 12:56] VITALS: TEMP 97.2
--- NOTE | 2018-02-12 13:22 | XR ---
EXAMINATION TYPE: XR chest 1V portable DATE OF EXAM: 02/12/2018 HISTORY: Status post lung biopsy COMPARISON: None. TECHNIQUE: Single view of the chest is submitted. FINDINGS: No evidence for a pneumothorax. Right upper lobe density persists. Scattered nodules noted. The heart is stable. Hilar and mediastinal structures are within normal limits. Degenerative changes are seen of the dorsal spine. IMPRESSION: 1. No evidence for a pneumothorax. Right upper lobe density persists. Scattered nodules noted.
--- NOTE | 2018-02-12 13:54 | PCN ---
PROCEDURE NOTE PREOPERATIVE DIAGNOSIS: Lung cancer. POSTOP DIAGNOSIS: Lung cancer. OPERATORS: 1. Dr. Norton. 2. Dr. Leon. The patient was done under general anesthesia in the operating room. The anesthesiologist and [employer] CONTROL ASSISTANT provided general anesthesia. There was informed consent and universal timeout. The patient had four different plans mapped by the [employer] navigational system. After patient was adequately sedated and under the effects of general anesthesia, the bronchoscope was inserted through the bronchoscope adapter connected to the endotracheal tube. Initially, what we did was went into the left upper lobe and did a biopsy of the left upper lobe. We did 1 biopsy there. That lesion was difficult to access. Next, we went to the right upper lobe. Multiple transbronchial biopsies were done. We did needle biopsies x2 in the right upper lobe. We did brushes in the right upper lobe and washings in the right upper lobe. Patient tolerated the procedure well. There was minimal bleeding. The patient was stable vital sign-galloway throughout the procedure. The bronchoscope was adapted. The patient will be recovered. I will make sure that we speak to the family. The specimens will be sent to the laboratory for analysis. There was no major complication. MMODL / IJN: [id number] /
[2018-02-12 14:35] VITALS: BP 144/76; PULSE 74
[2018-02-12 16:13] LABS: Appearance,BF Bloody; RBC, Body Fluid 68000 /uL
[2018-02-12 16:14] LABS: Nucleated Cells, Body Fluid 250 /uL
[2018-02-12 16:17] LABS: Mononuclear WBC,Body Fluid 92 %; Polynuclear WBC,Body Fluid 8 %; Total Cells Counted,Body Fluid 100
== END 2018-02-12 14:50 | disposition home or self-care (01) ==
LOC: ORWHC2ENDO 08:32
PROVIDERS: ATTEND Internal Medicine Critical Care Medicine
DX: R91.8 Other nonspecific abnormal finding of lung field (principal); R59.0 Localized enlarged lymph nodes; J42 Unspecified chronic bronchitis; N40.0 Benign prostatic hyperplasia without lower urinary tract symptoms; H34.9 Unspecified retinal vascular occlusion; I10 Essential (primary) hypertension; E78.5 Hyperlipidemia, unspecified; Z87.891 Personal history of nicotine dependence; Z86.73 Personal history of transient ischemic attack (TIA), and cerebral infarction without residual deficits; Z79.82 Long term (current) use of aspirin; Z79.899 Other long term (current) drug therapy
CPT/HCPCS: 88104; 88108; 88305; 89050; 71045; 71250; 31628; 31629; 31625; 31623; 31627; J2250; J1100; J2405; J2001; J3010; J2370; J0330; J2704; 31624

== ENCOUNTER → 2018-06-30 | Outpatient (CLI) | payer MEDICARE, OTHER ==
--- NOTE | 2018-06-30 16:22 | CT ---
EXAMINATION TYPE: CT chest w con DATE OF EXAM: 06/30/2018 COMPARISON: 12/27/2017 HISTORY: Follow up for solitary pulmonary nodule. CT DLP: 570 mGycm Automated exposure control for dose reduction was used. CONTRAST: CT scan of the chest is performed with IV Contrast, patient injected with 100ml mL of Isovue M300. FINDINGS: LUNGS: Again noted are focal areas of nodularity within the upper lobes bilaterally. Nodule within th e right lung currently measures 1.8 x 1.3 cm versus 2.0 x 1.4 cm. On the left nodular density measure s 1.2 cm in greatest dimension versus 1.6 cm previously. Additional nodular density right upper lobe anteriorly measures 8.5 mm versus 7.2 mm previously. Left lower lobe pulmonary nodules measuring less than 5 mm and also remains stable. Right lower lobe pulmonary nodules measures less than 5 mm and al so remain stable. Emphysematous changes persist. No new nodules are identified. No focal infiltrate. Mediastinum/hilum: Right hilar adenopathy measures 1.7 cm versus 1.8 cm previously. Subcarinal adenop athy measures 1.5 cm versus 1.5 cm previously. AP window adenopathy measures 1 cm versus 1 cm. Left h ilar lymph node measures subcentimeter in size as do several paratracheal lymph nodes. UPPER ABDOMEN: No significant abnormality appreciated. OTHER: No additional significant abnormality is seen. IMPRESSION: 1. Stable pulmonary nodularity 2. Stable hilar or mediastinal adenopathy. 3. Emphysematous changes as noted.
== END | disposition home or self-care (01) ==
LOC: RADCTMAIN 14:20
PROVIDERS: ATTEND Internal Medicine
DX: R91.8 Other nonspecific abnormal finding of lung field (principal); J43.9 Emphysema, unspecified; R59.0 Localized enlarged lymph nodes
CPT/HCPCS: 82565; 84520; 71260; 36415; Q9967

== ENCOUNTER → 2018-12-31 | Outpatient (CLI) | payer MEDICARE, OTHER ==
--- NOTE | 2018-12-31 15:01 | CT ---
EXAMINATION TYPE: CT chest w con DATE OF EXAM: 12/31/2018 COMPARISON: Chest CT June 30, 2018 and older CTs back through December 16, 2017 HISTORY: Pulmonary nodule CT DLP: 432.3 mGycm. Automated Exposure Control for Dose Reduction was Utilized. TECHNIQUE: CT scan of the thorax is performed following with IV Contrast, patient injected with 160 mL of Isovue 300. FINDINGS: LUNGS: Advanced emphysematous change in lung apices bilaterally remains present. There is persistent irregular linear scarring with more nodular component bilaterally. On the right this area measures 2. 5 x 1.3 cm on axial image 16 and is not significant progressed from original study December 16, 2017. On the left area of concern measures 2.5 x 1.8 cm axial image 12 not significantly changed from original study. There is some lateral inferior nodular extension redemonstrated smaller in prominence unchang ed from prior study. There is additional linear scarring anteriorly in the right midlung through the middle lobe redemonstrated. No new areas of nodularity or masses are identified. No pleural effusion or pneumothorax is seen. Mild central peribronchial wall thickening is stable presumed product of und erlying COPD. MEDIASTINUM: There are stable prominent bilateral hilar lymph nodes for reference axial images 22 thr ough 24 not significant change from prior studies. Right paratracheal prominent lymph node anterior superior mediastinum axial image 10 is not significant change from prior studies. No cardiomegaly or pericardial effusion is seen. Coronary artery calcification is redemonstrated which is noted marked underlying coronary artery disease. Slightly more prominent focal noncalcified plaque left subclavian artery causing stenosis approaching 50% remains present coronal image 62 not significantly changed f rom most recent CT. OTHER: Liver is diffusely low dense consistent with fatty infiltration. There is contrast excretion i n the visualized upper pole left kidney due to IV failure during initial injection. IMPRESSION: Overall stable findings, findings favor emphysematous change with scarring and stable tho racic adenopathy. No significant change from initial study December 16, 2017. Documentation of [address] ability advised.
== END | disposition home or self-care (01) ==
LOC: RADCTMAIN 13:05
PROVIDERS: ATTEND Internal Medicine
DX: J98.4 Other disorders of lung (principal); R59.0 Localized enlarged lymph nodes
CPT/HCPCS: 82565; 84520; 71260; 36415; Q9967

== ENCOUNTER → 2019-08-13 | Outpatient (CLI) | payer MEDICARE, OTHER | END | disposition home or self-care (01) | LOC: CPPFTMAIN 11:34 | PROVIDERS: ATTEND Internal Medicine Critical Care Medicine | DX: J44.9 Chronic obstructive pulmonary disease, unspecified (principal); R94.2 Abnormal results of pulmonary function studies | CPT/HCPCS: 94060; 94726; 94729 ==

== ENCOUNTER 2019-10-10 14:22 | Inpatient (IN) | payer MEDICARE, OTHER ==
[2019-10-10] MEDS ORDERED: ALBUTEROL NEBULIZED 2.5 MG/3 ML INHALATION STA (14:50)
[2019-10-10] MEDS ORDERED: IPRATROPIUM 0.5 MG/2.5 ML NEBU INHALATION STA (14:50)
--- NOTE | 2019-10-10 14:54 | ED ---
General Adult HPI - General Chief complaint: Shortness of Breath Stated complaint: SOB, cough Time Seen by Provider: 10/10/19 14:30 Source: patient, RN notes reviewed, old records reviewed Mode of arrival: ambulatory Limitations: no limitations - History of Present Illness Initial comments: This is a 69-year-old male who presents emergency Department with a past medical history significant for COPD. Patient states she quit smoking about 3 and half years ago. Patient states he started having difficulty breathing yesterday and started coughing up quite a bit of sputum. Patient states that continued to get worse today to the point where he was so short of breath he wanted to come the emergency department. Patient had his knee struck him to the emergency department. Patient denies any chest pain or palpitations. Patient denies any fever or chills. Patient denies any lightheadedness or dizziness. Patient denies abdominal pain patient denies nausea vomiting diarrhea. Patient denies any swelling to the legs or calf tenderness. - Related Data Home Medications Medication Instructions Recorded Confirmed Atorvastatin [Lipitor] 10 mg PO HS 01/03/17 02/12/18 Loratadine [Claritin] 10 mg PO DAILY 02/13/17 02/12/18 Aspirin 325 mg PO DAILY 02/12/18 02/12/18 Lisinopril [Zestril] 10 mg PO DAILY 02/12/18 02/12/18 Previous Rx's Medication Instructions Recorded Albuterol Inhaler [Ventolin Hfa 1 - 2 puff INHALATION Q6HR PRN #1 03/02/17 Inhaler] inhaler Allergies Allergy/AdvReac Type Severity Reaction Status Date / Time No Known Allergies Allergy Verified 10/10/19 14:30 Review of Systems ROS Statement: Those systems with pertinent positive or pertinent negative responses have been documented in the HPI. ROS Other: All systems not noted in ROS Statement are negative. Past Medical History Past Medical History: Asthma, Coronary Artery Disease (CAD), CVA/TIA, Hyperlipidemia, Hypertension Additional Past Medical History / Comment(s): left carotid artery totally blocked, eyes water r/t cva History of Any Multi-Drug Resistant Organisms: None Reported Past Surgical History: Appendectomy, Orthopedic Surgery Additional Past Surgical History / Comment(s): thumb, multiple sx for skin graft r/t sidhu from waist down. was in hospital for 2 months at [facility] Past Anesthesia/Blood Transfusion Reactions: No Reported Reaction Past Psychological History: No Psychological Hx Reported Smoking Status: Former smoker - Past Family History Brother(s) Family Medical History: Cancer General Exam - General Exam Comments Initial Comments: GENERAL: Patient is well-developed and well-nourished. Patient is nontoxic and well- hydrated and is in mild distress. ENT: Neck is soft and supple. No significant lymphadenopathy is noted. Oropharynx is clear. Moist mucous membranes. Neck has full range of motion without kellee citing any pain. EYES: The sclera were anicteric and conjunctiva were pink and moist. Extraocular movements were intact and pupils were equal round and reactive to light. Eyelids were unremarkable. PULMONARY: Patient has diminished breath sounds in the right base CARDIOVASCULAR: There is a regular rate and rhythm without any murmurs gallops or rubs. ABDOMEN: Soft and nontender with normal bowel sounds. No palpable organomegaly was noted. There is no palpable pulsatile mass. SKIN: Skin is clear with no lesions or rashes and otherwise unremarkable. NEUROLOGIC: Patient is alert and oriented x3. Cranial nerves II through XII are grossly intact. Motor and sensory are also intact. Normal speech, volume and content. Symmetrical smile. MUSCULOSKELETAL: Normal extremities with adequate strength and full range of motion. No lower extremity swelling or edema. No calf tenderness. LYMPHATICS: No significant lymphadenopathy is noted PSYCHIATRIC: Normal psychiatric evaluation. Limitations: no limitations Course Vital Signs 10/10/19 10/10/19 10/10/19 14:30 15:04 15:18 Temperature 97.4 F L Pulse Rate 113 H 85 88 Respiratory 22 20 20 Rate Blood Pressure 147/77 O2 Sat by Pulse 97 Oximetry 10/10/19 10/10/19 10/10/19 15:30 16:24 16:31 Temperature Pulse Rate 108 H 92 Respiratory 20 22 20 Rate Blood Pressure O2 Sat by Pulse Oximetry Medical Decision Making - Medical Decision Making EKG shows sinus tachycardia at a rate of 101 bpm NE interval 166 QRS is 86 QT interval 334 QTC is 433. Patient's EKG shows no ST segment elevation or depression or T wave abnormalities are noted. Chest x-ray shows pulmonary fibrosis unchanged. Patient received 2 breathing treatments steroids and antibiotics in the emergency department. After that I went back and reevaluated the patient he did state he felt a little better but when I got him up and ambulated him around the ER he did not feel comfortable going home. I spoke Dr. Bette Amos agreed to admit the patient admitted the patient wrote admitting orders. - Lab Data Result diagrams: 10/10/19 15:05 10/10/19 15:05 Lab Results 10/10/19 10/10/19 10/10/19 Range/Units 15:05 15:05 15:05 WBC 11.0 H (3.8-10.6) k/uL RBC 5.15 (4.30-5.90) m/uL Hgb 15.8 (13.0-17.5) gm/dL Hct 47.4 (39.0-53.0) % MCV 91.9 (80.0-100.0) fL MCH 30.6 (25.0-35.0) pg MCHC 33.3 (31.0-37.0) g/dL RDW 13.2 (11.5-15.5) % Plt Count 298 (150-450) k/uL Neutrophils % 77 % Lymphocytes % 13 % Monocytes % 6 % Eosinophils % 2 % Basophils % 0 % Neutrophils # 8.5 H (1.3-7.7) k/uL Lymphocytes # 1.5 (1.0-4.8) k/uL Monocytes # 0.7 (0-1.0) k/uL Eosinophils # 0.2 (0-0.7) k/uL Basophils # 0.0 (0-0.2) k/uL PT (9.0-12.0) sec INR (<1.2) APTT (22.0-30.0) sec Sodium 140 (137-145) mmol/L Potassium 4.6 (3.5-5.1) mmol/L Chloride 108 H (98-107) mmol/L Carbon Dioxide 24 (22-30) mmol/L Anion Gap 8 mmol/L BUN 19 (9-20) mg/dL Creatinine 0.98 (0.66-1.25) mg/dL Est GFR (CKD-EPI)AfAm >90 (>60 ml/min/1.73 sqM) Est GFR (CKD-EPI)NonAf 80 (>60 ml/min/1.73 sqM) Glucose 135 H (74-99) mg/dL Calcium 9.4 (8.4-10.2) mg/dL Magnesium 2.0 (1.6-2.3) mg/dL Total Bilirubin 0.8 (0.2-1.3) mg/dL AST 54 (17-59) U/L ALT 75 H (4-49) U/L Alkaline Phosphatase 112 (38-126) U/L Troponin I (0.000-0.034) ng/mL NT-Pro-B Natriuret Pep 170 pg/mL Total Protein 7.7 (6.3-8.2) g/dL Albumin 4.1 (3.5-5.0) g/dL 10/10/19 10/10/19 Range/Units 15:05 15:05 WBC (3.8-10.6) k/uL RBC (4.30-5.90) m/uL Hgb (13.0-17.5) gm/dL Hct (39.0-53.0) % MCV (80.0-100.0) fL MCH (25.0-35.0) pg MCHC (31.0-37.0) g/dL RDW (11.5-15.5) % Plt Count (150-450) k/uL Neutrophils % % Lymphocytes % % Monocytes % % Eosinophils % % Basophils % % Neutrophils # (1.3-7.7) k/uL Lymphocytes # (1.0-4.8) k/uL Monocytes # (0-1.0) k/uL Eosinophils # (0-0.7) k/uL Basophils # (0-0.2) k/uL PT 9.9 (9.0-12.0) sec INR 0.9 (<1.2) APTT 26.7 (22.0-30.0) sec Sodium (137-145) mmol/L Potassium (3.5-5.1) mmol/L Chloride (98-107) mmol/L Carbon Dioxide (22-30) mmol/L Anion Gap mmol/L BUN (9-20) mg/dL Creatinine (0.66-1.25) mg/dL Est GFR (CKD-EPI)AfAm (>60 ml/min/1.73 sqM) Est GFR (CKD-EPI)NonAf (>60 ml/min/1.73 sqM) Glucose (74-99) mg/dL Calcium (8.4-10.2) mg/dL Magnesium (1.6-2.3) mg/dL Total Bilirubin (0.2-1.3) mg/dL AST (17-59) U/L ALT (4-49) U/L Alkaline Phosphatase (38-126) U/L Troponin I <0.012 (0.000-0.034) ng/mL NT-Pro-B Natriuret Pep pg/mL Total Protein (6.3-8.2) g/dL Albumin (3.5-5.0) g/dL Disposition Clinical Impression: Pulmonary fibrosis, Acute bronchitis Disposition: ADMITTED IP TO THIS HOSP Referrals: Ovi Tay MD [Primary Care Provider] - 1-2 days Time of Disposition: 16:57
[2019-10-10 15:26] LABS: Basophils % (A) 0 %; Eosinophils # (A) 0.2 k/uL (0-0.7); Eosinophils % (A) 2 %; HCT 47.4 % (39.0-53.0); HGB 15.8 gm/dL (13.0-17.5); Lymphocytes # (A) 1.5 k/uL (1.0-4.8); Lymphocytes % (A) 13 %; MCH 30.6 pg (25.0-35.0); MCHC 33.3 g/dL (31.0-37.0); MCV 91.9 fL (80.0-100.0); Mean Platelet Volume 6.5; Monocytes # (A) 0.7 k/uL (0-1.0); Monocytes % (A) 6 %; Neutrophils # (A) 8.5 k/uL (1.3-7.7); Neutrophils % (A) 77 %; Platelet Count 298 k/uL (150-450); RBC 5.15 m/uL (4.30-5.90); RDW 13.2 % (11.5-15.5)
[2019-10-10 15:36] LABS: ALT 75 U/L (4-49); AST 54 U/L (17-59); African American GFR (CKD) >90 (>60 ml/min/1.73 sqM); Albumin 4.1 g/dL (3.5-5.0); Alkaline Phosphatase 112 U/L (38-126); Anion Gap 8 mmol/L; Blood Urea Nitrogen 19 mg/dL (9-20); Calcium 9.4 mg/dL (8.4-10.2); Carbon Dioxide 24 mmol/L (22-30); Chloride 108 mmol/L (98-107); Glucose 135 mg/dL (74-99); Non-African American GFR(CKD) 80 (>60 ml/min/1.73 sqM); Potassium 4.6 mmol/L (3.5-5.1); Sodium 140 mmol/L (137-145); Total Bilirubin 0.8 mg/dL (0.2-1.3); Total Protein 7.7 g/dL (6.3-8.2)
[2019-10-10 15:41] LABS: INR 0.9 (<1.2); Partial Thromboplastin Time 26.7 sec (22.0-30.0); Prothrombin Time 9.9 sec (9.0-12.0)
--- NOTE | 2019-10-10 16:04 | XR ---
EXAMINATION TYPE: XR chest 2V DATE OF EXAM: 10/10/2019 COMPARISON: February 12, 2018 HISTORY: Bronchoscopy. Lung biopsy. TECHNIQUE: 2 views FINDINGS: There is some coarse interstitial density in both lungs. There is no pneumothorax. There is mild pleural thickening at the lung apices. Heart size is normal. There is no heart failure. IMPRESSION: Interstitial pulmonary infiltrates consistent with pulmonary fibrosis unchanged. No pneum othorax. There is increased density over the upper lung miguel that could relate to some scarring and pleural plaque formation unchanged.
[2019-10-10] MEDS ORDERED: cefTRIAXone IN SWFI 1,000 MG/10 ML SYRINGE IVP STA (16:23)
[2019-10-10] MEDS ORDERED: AZITHROMYCIN 500 MG in SODIUM CHLORIDE 0.9% 250 ML IVPB STA (17:01)
[2019-10-10] MEDS ORDERED: NALOXONE 0.4 MG/ML 1 ML VIAL IV PRN (17:27)
--- NOTE | 2019-10-10 17:27 | P.HPIM ---
History of Present Illness H&P Date: 10/10/19 Chief Complaint: sob 69-year-old male with history of COPD who presents to the emergency Department with extreme shortness of breath. Symptoms started today. He states that he feels that someone is choking him through the throat. No chest pain. He has cough productive of clear phlegm. He feels warm but no documented fevers, no chills. Patient states that he quit smoking about 3 and half years ago. No hemoptysis, no nausea or vomiting. No palpitations. No lightheadedness or dizziness. Patient denies any swelling to the legs or calf tenderness. In the emergency department he was given some breathing treatments and discharge was recommended but patient insisted that he cannot go home due to his difficulty in breathing so he was admitted to the hospital for further evaluation and management. Review of Systems Complete review of system performed, pertinent positives per HPI, otherwise negative Past Medical History Past Medical History: Asthma, Coronary Artery Disease (CAD), CVA/TIA, Hype rlipidemia, Hypertension Additional Past Medical History / Comment(s): left carotid artery totally blocked, eyes water r/t cva History of Any Multi-Drug Resistant Organisms: None Reported Past Surgical History: Appendectomy, Orthopedic Surgery Additional Past Surgical History / Comment(s): thumb, multiple sx for skin graft r/t sidhu from waist down. was in hospital for 2 months at [facility] Past Anesthesia/Blood Transfusion Reactions: No Reported Reaction Past Psychological History: No Psychological Hx Reported Smoking Status: Former smoker - Past Family History Brother(s) Family Medical History: Cancer Medications and Allergies Home Medications Medication Instructions Recorded Confirmed Type Atorvastatin [Lipitor] 10 mg PO HS 01/03/17 02/12/18 History Loratadine [Claritin] 10 mg PO DAILY 02/13/17 02/12/18 History Albuterol Inhaler [Ventolin Hfa 1 - 2 puff INHALATION Q6HR PRN #1 03/02/17 02/12/18 Rx Inhaler] inhaler Aspirin 325 mg PO DAILY 02/12/18 02/12/18 History Lisinopril [Zestril] 10 mg PO DAILY 02/12/18 02/12/18 History Allergies Allergy/AdvReac Type Severity Reaction Status Date / Time No Known Allergies Allergy Verified 10/10/19 14:30 Physical Exam Vitals: Vital Signs Temp Pulse Resp BP Pulse Ox 10/10/19 16:31 92 20 10/10/19 16:24 108 H 22 10/10/19 15:30 20 10/10/19 15:18 88 20 10/10/19 15:04 85 20 10/10/19 14:30 97.4 F L 113 H 22 147/77 97 Intake and Output 10/10/19 10/10/19 10/10/19 06:59 14:59 22:59 Other: Weight 90.718 kg Constitutional: No acute distress, conversant, pleasant Eyes:Anicteric sclerae, moist conjunctiva, no lid-lag, PERRLA, ENMT: Oropharynx clear, no erythema, exudates Neck: Supple, FROM, no masses, or JVD, No carotid bruits, No thyromegaly Lungs: Diminished breath sounds bilaterally, scattered wheezing. Clear to percussion, Normal respiratory effort, no accessory muscle use Cardiovascular: Heart regular in rate and rhythm, No murmurs, gallops, or rubs, No peripheral edema Abdominal: Soft, Nontender, no guarding, rebound or rigidity, Normoactive bowel sounds, No hepatomegaly, No splenomegaly, No palpable mass Skin: Normal temperature, tone, texture, turgor, no induration, No subcutaneous nodules, No rash, lesions, No ulcers Extremities: No digital cyanosis, No clubbing, Pedal pulses intact and symmetrical, Radial pulses intact and symmetrical, No calf tenderness Psychiatric: Alert and oriented to person, place and time, appropriate affect, intact judgement Neuro: Muscles Strength 5/5 in all 4 extremities, Sensation to light touch grossly present throughout, Cranial nerves II-XII grossly intact, no focal sensory deficits Results CBC & Chem 7: 10/10/19 15:05 10/10/19 15:05 Labs: Abnormal Lab Results - Last 24 Hours (Table) 10/10/19 10/10/19 Range/Units 15:05 15:05 WBC 11.0 H (3.8-10.6) k/uL Neutrophils # 8.5 H (1.3-7.7) k/uL Chloride 108 H (98-107) mmol/L Glucose 135 H (74-99) mg/dL ALT 75 H (4-49) U/L Assessment and Plan Plan: Acute COPD exacerbation/acute bronchitis Admit to observation DuoNeb every 4 hours when necessary and every 6 hours scheduled IV steroids Coronary Artery Disease (CAD), Hyperlipidemia, Hypertension All stable Resume meds Patient admitted to observation, anticipating <2 midnights stay Anticipated disposition home Anticipated discharge 1-2 days
[2019-10-10] MEDS ORDERED: IPRATROPIUM-ALBUTEROL 3 ML NEB INHALATION PRN (17:29)
[2019-10-10] MEDS: IPRATROPIUM-ALBUTEROL 3 ML NEB INHALATION SCH (19:40)
[2019-10-10] MEDS: ATORVASTATIN 10 MG TAB PO SCH (21:25)
[2019-10-11] MEDS: methylPREDNISolone SOD SUCCI 125 MG/2 ML VIAL IV SCH ×4 (06:51→17:24)
[2019-10-11 07:41] LABS: Basophils % (A) 0 %; Eosinophils # (A) 0.3 k/uL (0-0.7); Eosinophils % (A) 2 %; HCT 47.9 % (39.0-53.0); HGB 15.7 gm/dL (13.0-17.5); Lymphocytes % (A) 16 %; MCH 30.3 pg (25.0-35.0); MCHC 32.8 g/dL (31.0-37.0); MCV 92.4 fL (80.0-100.0); Mean Platelet Volume 6.5; Monocytes # (A) 0.7 k/uL (0-1.0); Monocytes % (A) 6 %; Neutrophils # (A) 9.8 k/uL (1.3-7.7); Neutrophils % (A) 75 %; Platelet Count 316 k/uL (150-450); RBC 5.18 m/uL (4.30-5.90); RDW 13.3 % (11.5-15.5)
[2019-10-11 08:03] LABS: ALT 68 U/L (4-49); AST 53 U/L (17-59); Albumin 4.3 g/dL (3.5-5.0); Alkaline Phosphatase 109 U/L (38-126); Anion Gap 11 mmol/L; Blood Urea Nitrogen 18 mg/dL (9-20); Calcium 9.3 mg/dL (8.4-10.2); Carbon Dioxide 21 mmol/L (22-30); Chloride 108 mmol/L (98-107); Glucose 115 mg/dL (74-99); Phosphorus 3.5 mg/dL (2.5-4.5); Potassium 4.6 mmol/L (3.5-5.1); Sodium 140 mmol/L (137-145); Total Bilirubin 1.4 mg/dL (0.2-1.3); Total Protein 7.8 g/dL (6.3-8.2)
[2019-10-11 08:16] LABS: African American GFR (CKD) >90 (>60 ml/min/1.73 sqM); Non-African American GFR(CKD) 80 (>60 ml/min/1.73 sqM)
[2019-10-11] MEDS: ASPIRIN 325 MG TAB PO SCH (08:21)
[2019-10-11] MEDS: LISINOPRIL 10 MG TAB PO SCH (08:21)
[2019-10-11] MEDS: AZITHROMYCIN 500 MG in SODIUM CHLORIDE 0.9% 250 ML IVPB SCH (08:35)
[2019-10-11] MEDS: IPRATROPIUM-ALBUTEROL 3 ML NEB INHALATION SCH ×4 (08:54→20:33)
--- NOTE | 2019-10-11 09:31 | CT ---
EXAMINATION TYPE: CT chest wo con DATE OF EXAM: 10/11/2019 COMPARISON: 12/31/2018 HISTORY: Pulmonary fibrosis and bronchitis CT DLP: 508.8 mGycm. Automated Exposure Control for Dose Reduction was Utilized. TECHNIQUE: CT scan of the thorax is performed without IV contrast. FINDINGS: LUNGS: Advanced emphysematous change in lung apices bilaterally remains present. There is persistent irregular linear scarring with more nodular component bilaterally. On the right this area measures 2. 5 x 1.3 cm is not significant progressed from prior exam. On the left nodular appearing mass densities measures 2.5 x 1.8 cm not significantly changed from pr ior exam. There is some lateral inferior nodular extension redemonstrated smaller in prominence unchanged from prior study. There is additional linear scarring anteriorly in the right midlung through the middle lobe redemonst rated. Multiple additional less than 5 mm pulmonary nodules are stable from the prior exam. No pleura l effusion or pneumothorax is seen. Mild central peribronchial wall thickening is stable presumed pro duct of underlying COPD. MEDIASTINUM: Lack of IV contrast is noted to limit evaluation for mediastinal and especially hilar ad enopathy. There are stable prominent bilateral hilar lymph nodes not significant change from prior st udies. Right paratracheal prominent lymph node anterior superior mediastinum is not significant cardona e from prior studies. No cardiomegaly or pericardial effusion is seen. Coronary artery calcification is redemonstrated. Pro minent focal noncalcified plaque left subclavian artery causing stenosis approaching 50% remains pres ent not significantly changed from most recent CT. . OTHER: Correlate for hepatic steatosis. Hypertrophic change of the vertebral column noted.. Tiny calc ification cortex left kidney measuring 2 mm. Small hiatal hernia noted. IMPRESSION: 1. Stable diffuse emphysematous changes with areas of bilateral pulmonary masses and multiple bilater al pulmonary nodules unchanged from the prior exam. Malignancy not excluded.
--- NOTE | 2019-10-11 10:01 | P.PN ---
Subjective Progress Note Date: 10/11/19 Principal diagnosis: SOB Patient just came back from computed tomography scan, currently having back pain. Breathing is a little better but he is still short of breath. No chest pain. Objective - Vital Signs Vital signs: Vital Signs Temp 98.2 F 10/11/19 07:00 Pulse 90 10/11/19 07:00 Resp 17 10/11/19 07:00 BP 135/77 10/11/19 07:00 Pulse Ox 90 L 10/11/19 07:00 Intake & Output 10/10/19 10/11/19 10/11/19 18:59 06:59 18:59 Intake Total 236 Balance 236 Weight 90.718 kg Intake: Oral 236 Other: # Voids 1 - Exam Constitutional: No acute distress, conversant, pleasant Eyes:Anicteric sclerae, moist conjunctiva, no lid-lag, PERRLA, ENMT: Oropharynx clear, no erythema, exudates Neck: Supple, FROM, no masses, or JVD, No carotid bruits, No thyromegaly Lungs: Diminished breath sounds bilaterally, scattered wheezing. Clear to percussion, Normal respiratory effort, no accessory muscle use Cardiovascular: Heart regular in rate and rhythm, No murmurs, gallops, or rubs, No peripheral edema Abdominal: Soft, Nontender, no guarding, rebound or rigidity, Normoactive bowel sounds, No hepatomegaly, No splenomegaly, No palpable mass Skin: Normal temperature, tone, texture, turgor, no induration, No subcutaneous nodules, No rash, lesions, No ulcers Extremities: No digital cyanosis, No clubbing, Pedal pulses intact and symmetrical, Radial pulses intact and symmetrical, No calf tenderness Psychiatric: Alert and oriented to person, place and time, appropriate affect, intact judgement Neuro: Muscles Strength 5/5 in all 4 extremities, Sensation to light touch grossly present throughout, Cranial nerves II-XII grossly intact, no focal sensory deficits - Labs CBC & Chem 7: 10/11/19 07:11 10/11/19 07:11 Labs: Abnormal Lab Results - Last 24 Hours (Table) 10/10/19 10/10/19 10/11/19 Range/Units 15:05 15:05 07:11 WBC 11.0 H 13.0 H (3.8-10.6) k/uL Neutrophils # 8.5 H 9.8 H (1.3-7.7) k/uL Chloride 108 H (98-107) mmol/L Carbon Dioxide (22-30) mmol/L Glucose 135 H (74-99) mg/dL Total Bilirubin (0.2-1.3) mg/dL ALT 75 H (4-49) U/L 10/11/19 Range/Units 07:11 WBC (3.8-10.6) k/uL Neutrophils # (1.3-7.7) k/uL Chloride 108 H (98-107) mmol/L Carbon Dioxide 21 L (22-30) mmol/L Glucose 115 H (74-99) mg/dL Total Bilirubin 1.4 H (0.2-1.3) mg/dL ALT 68 H (4-49) U/L Assessment and Plan Plan: Acute COPD exacerbation/acute bronchitis Seen by puljonnathan Lundy every 4 hours when necessary and every 6 hours scheduled IV steroids Azithromycin Hx of lung nodules Followed by pulm Repeat CT chest showing stability Had biopsies last year that excluded lung ca Coronary Artery Disease (CAD), Hyperlipidemia, Hypertension All stable Resume meds Anticipated disposition home Anticipated discharge 1 day
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
[2019-10-11] MEDS: ACETAMINOPHEN TAB 325 MG TAB PO PRN ×2 (17:24→21:19)
[2019-10-11] MEDS: ATORVASTATIN 10 MG TAB PO SCH (20:29)
[2019-10-11] MEDS: BUDESONIDE 1 MG/2 ML NEBU INHALATION SCH (20:33)
[2019-10-11] MEDS: FORMOTEROL FUMARATE 20 MCG/2 ML NEBU INHALATION SCH (20:33)
[2019-10-12] MEDS: methylPREDNISolone SOD SUCCI 125 MG/2 ML VIAL IV SCH ×4 (00:35→17:24)
[2019-10-12] MEDS: ASPIRIN 325 MG TAB PO SCH (07:13)
[2019-10-12] MEDS: AZITHROMYCIN 500 MG in SODIUM CHLORIDE 0.9% 250 ML IVPB SCH (07:13)
[2019-10-12] MEDS: LISINOPRIL 10 MG TAB PO SCH (07:13)
[2019-10-12] MEDS: ACETAMINOPHEN TAB 325 MG TAB PO PRN ×2 (07:34→21:03)
[2019-10-12] MEDS: BUDESONIDE 1 MG/2 ML NEBU INHALATION SCH ×2 (08:35→21:31)
[2019-10-12] MEDS: FORMOTEROL FUMARATE 20 MCG/2 ML NEBU INHALATION SCH ×2 (08:35→21:31)
[2019-10-12] MEDS: IPRATROPIUM-ALBUTEROL 3 ML NEB INHALATION SCH ×4 (08:35→21:32)
[2019-10-12 11:03] LABS: Glucose,Whole Blood 214 mg/dL (75-99)
--- NOTE | 2019-10-12 13:08 | P.PN ---
Subjective Progress Note Date: 10/12/19 Principal diagnosis: COPD exacerbation Patient was seen and examined. No acute events overnight. Patient continues to complain of shortness of breath though improved from admission. States that he is 40% better. He denies any chest pain or palpitations. No nausea or vomitin g. No fever or chills. Objective - Vital Signs Vital signs: Vital Signs Temp 97.7 F 10/12/19 07:00 Pulse 95 10/12/19 12:37 Resp 16 10/12/19 07:00 BP 102/68 10/12/19 07:00 Pulse Ox 95 10/12/19 08:35 Intake & Output 10/11/19 10/12/19 10/12/19 18:59 06:59 18:59 Intake Total 722 560 Balance 722 560 Intake: Intake, IV Titration 250 Amount Azithromycin 500 mg In 250 Sodium Chloride 0.9% 250 ml @ 250 mls/hr IVPB DAILY [facility] Rx#:[id number] Oral 472 [id number] Other: # Voids 1 - Exam General: [non toxic], [no distress], [appears at stated age] Derm: [warm], [dry] Head: [atraumatic], [normocephalic], [symmetric] Eyes: [EOMI], [no lid lag], [anicteric sclera] Mouth: [no lip lesion], [mucus membranes moist] Cardiovascular: [S1S2 reg], [tachycardia], [positive DP pulse bilateral], Lungs: [End expiratory wheezing bilateral], [no rhonchi, no rales] , [no accessory muscle use] Abdominal: [soft], [ nontender to palpation], [no guarding], [no appreciable organomegaly] Ext: [no gross muscle atrophy], [no edema], [no contractures] Neuro: [ CN II-XI grossly intact], [no focal neuro deficits] Psych: [Alert], [oriented], [appropriate affect] - Labs CBC & Chem 7: 10/11/19 07:11 10/11/19 07:11 Labs: Abnormal Lab Results - Last 24 Hours (Table) 10/12/19 Range/Units 11:02 POC Glucose (mg/dL) 214 H (75-99) mg/dL Microbiology - Last 24 Hours (Table) 10/10/19 15:26 Blood Culture Gram Stain - Preliminary Blood Blood Culture - Preliminary Coagulase Negative Staph 10/10/19 15:26 Blood Culture - Final Blood Assessment and Plan Assessment: COPD exacerbation likely due to acute bronchitis Lung nodules Leukocytosis CAD Hypertension Dyslipidemia Obesity with BMI 35.4 Patient not quite back at baseline. Chest x-ray shows pulmonary fibrosis. Chest CT shows emphysematous changes with bilateral pulmonary nodules unchanged from previous exam. Plans: DuoNeb scheduled and as needed for shortness of breath and wheezing. Continue formoterol. Continue Pulmicort. 3 days of azithromycin for acute bronchitis. Continue Solu-Medrol. Follow pulmonology recommendations. Stable from previous chest CT. Plans: Follow-up pulmonology in the outpatient setting. Likely related to steroid use. No signs of infection. Plans: Continue to monitor. Plans: Continue aspirin, Lipitor and Plavix. Plans: Continue lisinopril. Monitor vitals, adjust medications as necessary. Plans: Continue Lipitor. Plans: Structured weight loss program. [Patient admitted for COPD exacerbation. He is pending clinical improvement. Likely DC in 1-2 days.]
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
[2019-10-12 16:44] LABS: Glucose,Whole Blood 233 mg/dL (75-99)
[2019-10-12] MEDS: INSULIN ASPART (NovoLOG) 100 UNIT/ML VIAL SQ SCH ×2 (17:24→21:04)
[2019-10-12 20:18] LABS: Glucose,Whole Blood 214 mg/dL (75-99)
[2019-10-12] MEDS: ATORVASTATIN 10 MG TAB PO SCH (21:03)
[2019-10-13] MEDS: methylPREDNISolone SOD SUCCI 125 MG/2 ML VIAL IV SCH ×5 (00:21→23:42)
[2019-10-13] MEDS: ACETAMINOPHEN TAB 325 MG TAB PO PRN ×2 (04:28→21:31)
[2019-10-13 07:03] LABS: Glucose,Whole Blood 230 mg/dL (75-99)
[2019-10-13] MEDS: BUDESONIDE 1 MG/2 ML NEBU INHALATION SCH ×2 (07:41→21:21)
[2019-10-13] MEDS: IPRATROPIUM-ALBUTEROL 3 ML NEB INHALATION SCH ×4 (07:41→21:20)
[2019-10-13] MEDS: FORMOTEROL FUMARATE 20 MCG/2 ML NEBU INHALATION SCH ×2 (07:41→21:20)
[2019-10-13] MEDS: INSULIN ASPART (NovoLOG) 100 UNIT/ML VIAL SQ SCH ×4 (07:44→21:32)
[2019-10-13] MEDS: AZITHROMYCIN 500 MG TAB PO SCH (07:44)
[2019-10-13] MEDS: ASPIRIN 325 MG TAB PO SCH (07:44)
[2019-10-13] MEDS: LISINOPRIL 10 MG TAB PO SCH (07:44)
--- NOTE | 2019-10-13 10:05 | P.DS ---
Providers Date of admission: 10/11/19 15:05 Expected date of discharge: 10/13/19 Attending physician: Carole Amos DO Consults: 10/10/19 16:57 Consult Physician Routine Consulting Provider: Leland Heller Consult Reason/Comments: Pulmonary fibrosis Do you want consulting provider notified?: Yes Primary care physician: [facility] Course: 61-year-old male with PMH of CAD, asthma, TIA, hypertension, dyslipidemia presented to the ED for shortness of breath along with cough productive of clear sputum. He was admitted for COPD exacerbation. Chest x-ray showed interstitial pulmonary infiltrates consistent with pulmonary fibrosis. CT chest showed stable diffuse emphysematous changes with areas of bilateral pulmonary masses and multiple bilateral pulmonary nodules that were unchanged from the prior exam. Patient was started on DuoNeb scheduled and as needed for shortness of breath and wheezing. He was given Solu-Medrol, formoterol and Pulmicort. He was given 3 days of azithromycin for acute bronchitis. Pulmonology was consulted and followed his clinical course. Patient was seen and examined. No acute events overnight. Patient reports significant improvement in his breathing since admission. He continues to complain a cough productive of clear sputum. He does complain of some chest tightness this morning. No nausea or vomiting. No fever or chills. General: [non toxic], [no distress], [appears at stated age] Derm: [warm], [dry] Head: [atraumatic], [normocephalic], [symmetric] Eyes: [EOMI], [no lid lag], [anicteric sclera] Mouth: [no lip lesion], [mucus membranes moist] Cardiovascular: [S1S2 reg], [tachycardia], [positive DP pulse bilateral], Lungs: [Decreased breath sounds bilateral], [no rhonchi, no rales] , [no accessory muscle use] Abdominal: [soft], [ nontender to palpation], [no guarding], [no appreciable organomegaly] Ext: [no gross muscle atrophy], [no edema], [no contractures] Neuro: [no focal neuro deficits] Psych: [Alert], [oriented], [appropriate affect] COPD exacerbation likely due to acute bronchitis Chest tightness Lung nodules Leukocytosis CAD Hypertension Dyslipidemia Obesity with BMI 35.4 Patient not quite back at baseline. Chest x-ray shows pulmonary fibrosis. Chest CT shows emphysematous changes with bilateral pulmonary nodules unchanged from previous exam. Plans: DuoNeb scheduled and as needed for shortness of breath and wheezing. Continue formoterol. Continue Pulmicort. 3 days of azithromycin for acute bronchitis. Transition Solu-Medrol to prednisone on d ischarge. Follow 6 minute walk test. Follow pulmonology recommendations. Initial troponin less than 0.012 with EKG showing sinus tachycardia. Plans: Likely related to COPD. Trend troponin/EKG to rule out ACS. Stable from previous chest CT. Plans: Follow-up pulmonology in the outpatient setting. Likely related to steroid use. No signs of infection. Plans: Continue to monitor. Plans: Continue aspirin, Lipitor and Plavix. Plans: Continue lisinopril. Monitor vitals, adjust medications as necessary. Plans: Continue Lipitor. Plans: Structured weight loss program. [Patient admitted for COPD exacerbation. Has improved but not quite back to baseline. Troponins ordered for chest tightness. We'll see how the patient does into this afternoon. Follow 6 minute walk test. Possible DC with pulmonology clearance.] Pertinent Studies: Chest x-ray, chest CT Patient Condition at Discharge: Stable Plan - Discharge Summary New Discharge Prescriptions: New Ipratropium-Albuterol Nebulize [Duoneb 0.5 mg-3 mg/3 ml Soln] 3 ml INHALATION RT-Q2H PRN #90 ampul.neb PRN Reason: Shortness Of Breath Or Wheezing predniSONE 50 mg PO DAILY #3 tablet Budesonide-Formot 160-4.5 Mcg [Symbicort 160-4.5 Mcg Inhaler] 2 puff INHALATION BID #1 inhaler Albuterol Inhaler [Ventolin Hfa Inhaler] 1 - 2 puff INHALATION RT-Q6H PRN #1 inhaler PRN Reason: Shortness Of Breath Azithromycin [Zithromax] 500 mg PO DAILY #2 tab Continue Atorvastatin [Lipitor] 10 mg PO HS Loratadine [Claritin] 10 mg PO DAILY Lisinopril [Zestril] 10 mg PO DAILY Aspirin 325 mg PO DAILY Multivitamins, Thera [Multivitamin (formulary)] 1 tab PO DAILY Discharge Medication List Atorvastatin [Lipitor] 10 mg PO HS 01/03/17 [History] Loratadine [Claritin] 10 mg PO DAILY 02/13/17 [History] Aspirin 325 mg PO DAILY 02/12/18 [History] Lisinopril [Zestril] 10 mg PO DAILY 02/12/18 [History] Multivitamins, Thera [Multivitamin (formulary)] 1 tab PO DAILY 10/10/19 [History] Albuterol Inhaler [Ventolin Hfa Inhaler] 1 - 2 puff INHALATION RT-Q6H PRN #1 inhaler 10/13/19 [Rx] Azithromycin [Zithromax] 500 mg PO DAILY #2 tab 10/13/19 [Rx] Budesonide-Formot 160-4.5 Mcg [Symbicort 160-4.5 Mcg Inhaler] 2 puff INHALATION BID #1 inhaler 10/13/19 [Rx] Ipratropium-Albuterol Nebulize [Duoneb 0.5 mg-3 mg/3 ml Soln] 3 ml INHALATION RT-Q2H PRN #90 ampul.neb 10/13/19 [Rx] predniSONE 50 mg PO DAILY #3 tablet 10/13/19 [Rx] Follow up Appointment(s)/Referral(s): Ovi Tay MD [Primary Care Provider] - 1-2 days Kwasi Norton DO [Doctor of Osteopathic Medicine] - 1 Week Activity/Diet/Wound Care/Special Instructions: Diet: Low-salt Follow-up PCP within 3 days of discharge. Follow pulmonology within 1 week of discharge. Take all medications as advised. Discharge Disposition: HOME SELF-CARE
[2019-10-13 11:17] LABS: Creatine Kinase MB 10.3 ng/mL (0.0-2.4)
[2019-10-13 11:18] LABS: Troponin I 0.046 ng/mL (0.000-0.034)
[2019-10-13 11:19] LABS: Glucose,Whole Blood 317 mg/dL (75-99)
--- NOTE | 2019-10-13 12:24 | CONS ---
CONSULTATION Mr. Snyder is a 69-year-old male with a known history of chronic obstructive lung disease, history of pulmonary nodules, history of COPD and asthmatic bronchitis, hypertension, hyperlipidemia, history of left carotid stenosis, who presented to the emergency room with symptoms of progressive dyspnea with cough. Cardiology consultation was requested because of an episode of chest tightness. According to the patient, he has been having chest tightness on and off at home, usually better when he sits up, worse when he is lying down. Today, he had an episode that lasted all morning. His troponin was evaluated and was mildly elevated and because of that, cardiology consultation was requested. At the time of my evaluation, he is pain free. Patient denies any prior documented history of myocardial infarction or congestive heart failure. He denies any dizziness or palpitation. He has no PND or orthopnea. No significant peripheral edema according to him. He had a prior history of stroke. His coronary risk factors are remarkable for prior history of smoking which he stopped about 2-1/2 years ago, history of hyperlipidemia and hypertension. MEDICATIONS: His medications include aspirin, prednisone, DuoNeb, Symbicort, Zestril 10 mg daily, Claritin, and Lipitor 10 mg daily. REVIEW OF SYSTEMS: RESPIRATORY SYSTEM: He had dyspnea on exertion, history of cough and wheezing. GI SYSTEM: He had recent bright red blood per rectum, appears to be related to hemorrhoid. No nausea. No vomiting. SYSTEM: No dysuria or hematuria. NERVOUS SYSTEM: No stroke or seizure. PHYSICAL EXAMINATION: This is a 69-year-old male, alert, oriented, in no apparent distress, obese. Blood pressure 100/60 with the heart rate in the 90s. Afebrile. HEAD: Normocephalic. EYES: Sclerae anicteric. NECK: Good carotid upstroke. No bruit. No jugular venous distention. LUNGS: With mild decrease in breath sounds, no wheezes. HEART: Regular rate and rhythm. S1, S2. No S3 with systolic murmur heard at the base. No diastolic murmur. No rub. ABDOMEN: Soft, obese, nontender. Positive bowel sounds. No organomegaly. EXTREMITIES: No edema. LAB DATA: Lab data revealed troponin 0.046. BUN and creatinine on the and 0.98. His total bilirubin was 1.4. On presentation, his troponin was less than 0.012. His EKG reveals sinus mechanism with T-wave inversion inferiorly with no acute changes in comparison to the EKG done today. He had a CT scan of the chest that revealed diffuse emphysematous changes with bilateral pulmonary masses and bilateral pulmonary nodules. His chest x-ray showed interstitial pulmonary infiltrate and evidence of pulmonary fibrosis. IMPRESSION: 1. Episode of chest tightness of unclear etiology has some atypical features for ischemic heart disease. The discomfort got better when the patient sat up and lasted for few hours. He had mild troponin elevation that could represent a non ST elevation myocardial infarction, although it could be related to his tracheobronchitis. 2. Exacerbation of chronic obstructive pulmonary disease in a patient with lung nodule and pulmonary fibrosis by chest x-ray. 3. Hypertension. 4. Hyperlipidemia. 5. Pulmonary mass and nodules. 6. Obesity. 7. History of carotid disease and prior history of stroke. RECOMMENDATION: From the cardiac standpoint, will obtain subsequent troponin. I will obtain an echocardiogram with Doppler. Follow his EKG. I would favor conservative treatment considering his lung status unless there is significant abnormality on his subsequent lab data or echocardiogram. Thank you for this consult. We will follow with you. MMODL / IJN: [id number] /
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
--- NOTE | 2019-10-13 15:12 | ECHOF ---
Referral Reason:chest pain MEASUREMENTS -------- HEIGHT: 160.0 cm WEIGHT: 90.7 kg BP: RVIDd: 2.8 cm (< 3.3) IVSd: 1.3 cm (0.6 - 1.1) LVIDd: 4.7 cm (3.9 - 5.3) LVPWd: 1.4 cm (0.6 - 1.1) IVSs: 1.2 cm LVIDs: 3.0 cm LVPWs: 1.7 cm LA Diam: 3.3 cm (2.7 - 3.8) Ao Diam: 2.8 cm (2.0 - 3.7) AV Cusp: 1.7 cm (1.5 - 2.6) LA Diam: 3.3 cm (2.7 - 3.8) MV EXCURSION: 13.536 mm (> 18.000) MV EF SLOPE: 87 mm/s (70 - 150) EPSS: 0.4 cm MV E Bandar: 0.82 m/s MV DecT: 208 ms MV A Bandar: 0.71 m/s MV E/A Ratio: 1.15 AV maxP.85 mmHg AV meanP.32 mmHg RAP: 5.00 mmHg RVSP: 46.36 mmHg FINDINGS -------- Sinus rhythm. This was a techncally difficult study with suboptimal views, , Lumason utilized for enhancement of im ages. The left ventricular size is normal. There is mild concentric left ventricular hypertrophy. Overa ll left ventricular systolic function is normal with, an EF between 55 - 60 %. The right ventricle is normal in size. Normal LA size by volume 22+/-6 ml/m2. The right atrial size is normal. 5.0mg OF Lumason UTLIZED: 2 OR MORE WALL SEGMENTS NOT VISUALIZED. There is mild aortic stenosis present. Peak/mean gradient across the Aortic Valve is 18.85mmHg / 13 .32mmHg. Mild mitral annular calcification present. Mild mitral regurgitation is present. Mild tricuspid regurgitation present. There is moderate pulmonary hypertension. The right ventric ular systolic pressure, as measured by Doppler, is 46.36mmHg. There is no pulmonic regurgitation present. The aortic root size is normal. Echo free space represents a pericardial fat pad. CONCLUSIONS -------- 1. Sinus rhythm. 2. This was a techncally difficult study with suboptimal views, , Lumason utilized for enhancement of images. 3. The left ventricular size is normal. 4. There is mild concentric left ventricular hypertrophy. 5. Overall left ventricular systolic function is normal with, an EF between 55 - 60 %. 6. Normal LA size by volume 22+/-6 ml/m2. 7. 5.0mg OF Lumason UTLIZED: 2 OR MORE WALL SEGMENTS NOT VISUALIZED. 8. There is mild aortic stenosis present. 9. Peak/mean gradient across the Aortic Valve is 18.85mmHg / 13.32mmHg. 10. Mild mitral annular calcification present. 11. Mild mitral regurgitation is present. 12. Mild tricuspid regurgitation present. 13. There is moderate pulmonary hypertension. 14. There is no pulmonic regurgitation present. 15. Echo free space represents a pericardial fat pad. JOB ANALYSIS MANAGER: Cindi Dia RDCS
[2019-10-13 16:36] LABS: Glucose,Whole Blood 212 mg/dL (75-99)
[2019-10-13 21:09] LABS: Glucose,Whole Blood 194 mg/dL (75-99)
[2019-10-13] MEDS: ATORVASTATIN 40 MG TAB PO SCH (21:32)
[2019-10-14] MEDS: methylPREDNISolone SOD SUCCI 125 MG/2 ML VIAL IV SCH ×4 (06:06→23:50)
[2019-10-14] MEDS: FORMOTEROL FUMARATE 20 MCG/2 ML NEBU INHALATION SCH ×2 (07:17→20:00)
[2019-10-14] MEDS: BUDESONIDE 1 MG/2 ML NEBU INHALATION SCH ×2 (07:17→19:47)
[2019-10-14] MEDS: IPRATROPIUM-ALBUTEROL 3 ML NEB INHALATION SCH ×4 (07:17→19:47)
[2019-10-14 07:39] LABS: Calcium 8.8 mg/dL (8.4-10.2); Potassium 4.8 mmol/L (3.5-5.1)
[2019-10-14 08:48] LABS: Glucose,Whole Blood 236 mg/dL (75-99)
[2019-10-14] MEDS: LISINOPRIL 10 MG TAB PO SCH (08:51)
[2019-10-14] MEDS: ASPIRIN 81 MG PO SCH (08:51)
[2019-10-14] MEDS: INSULIN ASPART (NovoLOG) 100 UNIT/ML VIAL SQ SCH ×4 (08:51→21:05)
[2019-10-14] MEDS: AZITHROMYCIN 500 MG TAB PO SCH (08:51)
--- NOTE | 2019-10-14 09:26 | P.PN ---
Subjective Progress Note Date: 10/14/19 Principal diagnosis: COPD exacerbation Patient was seen and examined. No acute events overnight. Patient reports considerable improvement in his breathing since admission. Chest discomfort from yesterday has resolved. He denies any chest pain, shortness of breath or palpitations. No fever or chills. Objective - Vital Signs Vital signs: Vital Signs Temp 98.2 F 10/14/19 07:00 Pulse 96 10/14/19 07:34 Resp 18 10/14/19 07:00 BP 134/67 10/14/19 07:00 Pulse Ox 96 10/14/19 07:20 Intake & Output 10/13/19 10/14/19 10/14/19 18:59 06:59 18:59 Intake Total 757 Balance 757 Intake: Oral 757 Other: Voiding Method Toilet # Voids 3 2 - Exam General: [non toxic], [no distress], [appears at stated age] Derm: [warm], [dry] Head: [atraumatic], [normocephalic], [symmetric] Eyes: [EOMI], [no lid lag], [anicteric sclera] Mouth: [no lip lesion], [mucus membranes moist] Cardiovascular: [S1S2 reg], [tachycardia], [positive DP pulse bilateral], Lungs: [Decreased breath sounds bilateral], [no rhonchi, no rales] , [no accessory muscle use] Abdominal: [soft], [ nontender to palpation], [no guarding], [no appreciable organomegaly] Ext: [no gross muscle atrophy], [no edema], [no contractures] Neuro: [no focal neuro deficits] Psych: [Alert], [oriented], [appropriate affect] - Labs CBC & Chem 7: 10/11/19 07:11 10/14/19 06:32 Labs: Abnormal Lab Results - Last 24 Hours (Table) 10/13/19 10/13/19 10/13/19 Range/Units 10:23 11:18 16:27 Chloride (98-107) mmol/L Carbon Dioxide (22-30) mmol/L BUN (9-20) mg/dL Glucose (74-99) mg/dL POC Glucose (mg/dL) 317 H (75-99) mg/dL Total Creatine Kinase 994 H (55-170) U/L CK-MB (CK-2) 10.3 H (0.0-2.4) ng/mL Troponin I 0.046 H* 0.053 H* (0.000-0.034) ng/mL 10/13/19 10/13/19 10/13/19 Range/Units 16:35 20:47 22:24 Chloride (98-107) mmol/L Carbon Dioxide (22-30) mmol/L BUN (9-20) mg/dL Glucose (74-99) mg/dL POC Glucose (mg/dL) 212 H 194 H (75-99) mg/dL Total Creatine Kinase (55-170) U/L CK-MB (CK-2) (0.0-2.4) ng/mL Troponin I 0.078 H* (0.000-0.034) ng/mL 10/14/19 10/14/19 Range/Units 06:32 08:46 Chloride 109 H (98-107) mmol/L Carbon Dioxide 21 L (22-30) mmol/L BUN 34 H (9-20) mg/dL Glucose 194 H (74-99) mg/dL POC Glucose (mg/dL) 236 H (75-99) mg/dL Total Creatine Kinase (55-170) U/L CK-MB (CK-2) (0.0-2.4) ng/mL Troponin I (0.000-0.034) ng/mL Microbiology - Last 24 Hours (Table) 10/10/19 15:26 Blood Culture Gram Stain - Final Blood Blood Culture - Final Staphylococcus epidermidis Assessment and Plan Assessment: COPD exacerbation likely due to acute bronchitis Chest tightness with elevated troponins Lung nodules Leukocytosis CAD Hypertension Dyslipidemia Obesity with BMI 35.4 Patient not quite back at baseline. Chest x-ray shows pulmonary fibrosis. Chest CT shows emphysematous changes with bilateral pulmonary nodules unchanged from previous exam. Passed 6 minute walk test. Plans: DuoNeb scheduled and as needed for shortness of breath and wheezing. Continue formoterol. Continue Pulmicort. 3 days of azithromycin for acute bronchitis. Transition Solu-Medrol to prednisone on discharge. Follow pulmonology recommendations. Initial troponin less than 0.012 with EKG showing sinus tachycardia. Troponin 0.046, 0.053, 0.078 with EKG showing T-wave inversions. Plans: Likely related to COPD. demand ischemia from increased work of breathing. Follow troponin. Stable from previous chest CT. Plans: Follow-up pulmonology in the outpatient setting. Likely related to steroid use. No signs of infection. Plans: Continue to monitor. Plans: Continue aspirin, Lipitor and Plavix. Plans: Continue lisinopril. Monitor vitals, adjust medications as necessary. Plans: Continue Lipitor. Plans: Structured weight loss program. [Patient admitted for COPD exacerbation. Has improved but not quite back to baseline. Troponins elevated, repeat ordered. We'll see how the patient does i nto this afternoon. Possible DC with cardiology and pulmonology clearance.]
[2019-10-14 10:00] LABS: Creatine Kinase MB 9.4 ng/mL (0.0-2.4)
[2019-10-14 10:02] LABS: Troponin I 0.06 ng/mL (0.000-0.034)
--- NOTE | 2019-10-14 10:56 | P.PN ---
Subjective Progress Note Date: 10/14/19 Principal diagnosis: Shortness of breath This is a very pleasant 69-year-old gentleman with history of chronic obstructive pulmonary disease, hypertension, dyslipidemia, and carotid disease, was admitted to the hospital with symptoms of dyspnea associated with extensive and severe cough. The patient was diagnosed with exacerbation of chronic obstructive pulmonary disease with possible pneumonia as well. We involving his case because he did have intermittent episodes of chest discomfort which seems to be atypical clinically and mostly associated with cough. Also we consulted to see him for abnormal troponin. We advise maximize medical treatment and conservative medical approach at this point. The patient was seen today, 10/14/2019. He continues to have extensive cough. He continues to have shortness of breath but it has been improved. He denies any symptoms of chest pain or chest discomfort. On examination he is tachycardic and beside that he does have bilateral expiratory wheezing. He is on aspirin as well as a statin. I am going to add a small dose of calcium channel delfin, just to slow the heart rate down little bit. The echocardiogram revealed normal left ventricular systolic function with evidence of mild aortic stenosis, mild MR, mild TR, and mild pulmonary hypertension. Objective - Vital Signs Vital signs: Vital Signs Temp 98.2 F 10/14/19 07:00 Pulse 100 10/14/19 08:52 Resp 18 10/14/19 08:52 BP 134/67 10/14/19 07:00 Pulse Ox 96 10/14/19 07:20 Intake & Output 10/13/19 10/14/19 10/14/19 18:59 06:59 18:59 Intake Total 757 Balance 757 Intake: Oral 757 Other: Voiding Method Toilet Toilet # Voids 3 2 - Constitutional General appearance: Present: no acute distress - Respiratory Respiratory: bilateral: wheezing - Cardiovascular Rhythm: regular Heart sounds: normal: S1, S2 Abnormal Heart Sounds: Present: systolic murmur - Labs CBC & Chem 7: 10/11/19 07:11 10/14/19 06:32 Labs: Abnormal Lab Results - Last 24 Hours (Table) 10/13/19 10/13/19 10/13/19 Range/Units 10:23 11:18 16:27 Chloride (98-107) mmol/L Carbon Dioxide (22-30) mmol/L BUN (9-20) mg/dL Glucose (74-99) mg/dL POC Glucose (mg/dL) 317 H (75-99) mg/dL Total Creatine Kinase 994 H (55-170) U/L CK-MB (CK-2) 10.3 H (0.0-2.4) ng/mL Troponin I 0.046 H* 0.053 H* (0.000-0.034) ng/mL 10/13/19 10/13/19 10/13/19 Range/Units 16:35 20:47 22:24 Chloride (98-107) mmol/L Carbon Dioxide (22-30) mmol/L BUN (9-20) mg/dL Glucose (74-99) mg/dL POC Glucose (mg/dL) 212 H 194 H (75-99) mg/dL Total Creatine Kinase (55-170) U/L CK-MB (CK-2) (0.0-2.4) ng/mL Troponin I 0.078 H* (0.000-0.034) ng/mL 10/14/19 10/14/19 10/14/19 Range/Units 06:32 06:32 08:46 Chloride 109 H (98-107) mmol/L Carbon Dioxide 21 L (22-30) mmol/L BUN 34 H (9-20) mg/dL Glucose 194 H (74-99) mg/dL POC Glucose (mg/dL) 236 H (75-99) mg/dL Total Creatine Kinase 450 H (55-170) U/L CK-MB (CK-2) 9.4 H (0.0-2.4) ng/mL Troponin I 0.060 H* (0.000-0.034) ng/mL Microbiology - Last 24 Hours (Table) 10/10/19 15:26 Blood Culture Gram Stain - Final Blood Blood Culture - Final Staphylococcus epidermidis Assessment and Plan Assessment: Assessment #1 acute exacerbation of COPD #2 possible pneumonia #3 mildly abnormal troponin #4 atypical chest discomfort #5 hypertension #6 dyslipidemia Plan #1 continue the current medical regimen including the aspirin and statin #2 add calcium channel delfin for the sinus tachycardia #3 continue the conservative medical approach #4 the echocardiogram was reviewed #5 follow-up with the patient
[2019-10-14 11:57] LABS: Glucose,Whole Blood 396 mg/dL (75-99)
[2019-10-14] MEDS: guaiFENesin-Coden 100-10MG/5ML 10 ML CUP PO PRN (12:08)
[2019-10-14] MEDS ORDERED: INSULIN ASPART (NovoLOG) 100 UNIT/ML VIAL SQ ONE (12:12)
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
[2019-10-14 16:55] LABS: Glucose,Whole Blood 266 mg/dL (75-99)
[2019-10-14] MEDS: BENZONATATE 100 MG CAP PO SCH ×2 (17:12→21:21)
[2019-10-14 19:58] LABS: Glucose,Whole Blood 239 mg/dL (75-99)
[2019-10-14] MEDS: ATORVASTATIN 40 MG TAB PO SCH (21:05)
[2019-10-15] MEDS: guaiFENesin-Coden 100-10MG/5ML 10 ML CUP PO PRN (03:08)
[2019-10-15] MEDS: methylPREDNISolone SOD SUCCI 125 MG/2 ML VIAL IV SCH ×2 (05:39→11:31)
[2019-10-15 07:04] LABS: Glucose,Whole Blood 203 mg/dL (75-99)
[2019-10-15 07:22] VITALS: BP 93/54; RESP 18; TEMP 97.6
[2019-10-15] MEDS: LISINOPRIL 10 MG TAB PO SCH (07:52)
[2019-10-15] MEDS: BENZONATATE 100 MG CAP PO SCH (07:52)
[2019-10-15] MEDS: ASPIRIN 81 MG PO SCH (07:52)
[2019-10-15] MEDS: INSULIN ASPART (NovoLOG) 100 UNIT/ML VIAL SQ SCH ×2 (07:52→11:31)
[2019-10-15] MEDS: AZITHROMYCIN 500 MG TAB PO SCH (07:52)
[2019-10-15] MEDS: IPRATROPIUM-ALBUTEROL 3 ML NEB INHALATION SCH ×2 (08:49→12:12)
[2019-10-15] MEDS: FORMOTEROL FUMARATE 20 MCG/2 ML NEBU INHALATION SCH (08:49)
[2019-10-15] MEDS: BUDESONIDE 1 MG/2 ML NEBU INHALATION SCH (08:49)
[2019-10-15] MEDS ORDERED: DILTIAZEM CD 120 MG CAP.ER.24H PO SCH (09:00)
--- NOTE | 2019-10-15 10:21 | P.PN ---
Subjective This is a pleasant 69-year-old male past medical history significant for COPD, hypertension, dyslipidemia, carotid artery disease and former nicotine dependence. He is seen and examined resting comfortably laying flat in bed in no acute distress. He continues to complain of shortness of breath and significant productive cough. He denies any further symptoms of chest discomfort. Currently maintained on aspirin 81 mg daily, atorvastatin 40 mg daily, Cardizem 120 mg daily and lisinopril 10 mg daily. Blood pressure 93/54 heart rate 100 afebrile maintaining oxygen saturation on nasal cannula. Echocardiogram obtained on this admission reveals preserved LV systolic function with ejection fraction 55-60%, mild aortic stenosis with a mean gradient of 13 mmHg, mild MR, mild TR and moderate pulmonary hypertension with an RVSP of 46 mmHg. GENERAL: Well-appearing, well-nourished and in no acute distress. NECK: Supple without JVD or thyromegaly. LUNGS: Expiratory wheezes throughout, no rales or rhonchi. Respiration equal and unlabored. HEART: Regular rate and rhythm with systolic ejection murmur at the base, no rubs or gallops. S1 and S2 heard. EXTREMITIES: Normal range of motion, no edema. No clubbing or cyanosis. Peripheral pulses intact. ASSESSMENT Acute exacerbation of COPD Mildly abnormal troponin secondary to oxygen supply demand mismatch from COPD exacerbation Chest pain, atypical. Hypertension Dyslipidemia PLAN Continue current medical regimen. Stable from a cardiac perspective, ongoing medical management per primary care team and pulmonary service. Follow up with Dr. Fried upon discharge. Nurse Practitioner note has been reviewed, I agree with a documented findings and plan of care. Patient was seen and examined. Objective - Vital Signs Vital signs: Vital Signs Temp 97.6 F 10/15/19 07:00 Pulse 100 10/15/19 09:10 Resp 18 10/15/19 07:53 BP 93/54 10/15/19 07:00 Pulse Ox 96 10/15/19 08:50 Intake & Output 10/14/19 10/15/19 10/15/19 18:59 06:59 18:59 Intake Total 490 Output Total 400 Balance -400 490 Intake: Oral 490 Output: Urine 400 Other: Voiding Method Toilet Toilet Toilet # Voids 3 - Labs CBC & Chem 7: 10/11/19 07:11 10/14/19 06:32 Labs: Abnormal Lab Results - Last 24 Hours (Table) 10/14/19 10/14/19 10/14/19 Range/Units 06:32 11:55 16:52 POC Glucose (mg/dL) 396 H 266 H (75-99) mg/dL Total Creatine Kinase 450 H (55-170) U/L CK-MB (CK-2) 9.4 H (0.0-2.4) ng/mL Troponin I 0.060 H* (0.000-0.034) ng/mL 10/14/19 10/15/19 Range/Units 19:56 06:38 POC Glucose (mg/dL) 239 H 203 H (75-99) mg/dL Total Creatine Kinase (55-170) U/L CK-MB (CK-2) (0.0-2.4) ng/mL Troponin I (0.000-0.034) ng/mL
--- NOTE | 2019-10-15 10:23 | P.PN ---
Subjective Progress Note Date: 10/15/19 Principal diagnosis: COPD exacerbation Patient was seen and examined. No acute events overnight. Patient reports improvement in his breathing since admission but not quite back to baseline. States that he is having coughing fits. Plans of some chest tightness. He denies any palpitations. No nausea or vomiting. No fever or chills. Objective - Vital Signs Vital signs: Vital Signs Temp 97.6 F 10/15/19 07:00 Pulse 100 10/15/19 09:10 Resp 18 10/15/19 07:53 BP 93/54 10/15/19 07:00 Pulse Ox 96 10/15/19 08:50 Intake & Output 10/14/19 10/15/19 10/15/19 18:59 06:59 18:59 Intake Total 490 Output Total 400 Balance -400 490 Intake: Oral 490 Output: Urine 400 Other: Voiding Method Toilet Toilet Toilet # Voids 3 - Exam General: [non toxic], [no distress], [appears at stated age] Derm: [warm], [dry] Head: [atraumatic], [normocephalic], [symmetric] Eyes: [EOMI], [no lid lag], [anicteric sclera] Mouth: [no lip lesion], [mucus membranes moist] Cardiovascular: [S1S2 reg], [tachycardia], [positive DP pulse bilateral], Lungs: [Decreased breath sounds bilateral], [no rhonchi, no rales] , [no accessory muscle use] Abdominal: [soft], [ nontender to palpation], [no guarding], [no appreciable organomegaly] Ext: [no gross muscle atrophy], [no edema], [no contractures] Neuro: [no focal neuro deficits] Psych: [Alert], [oriented], [appropriate affect] - Labs CBC & Chem 7: 10/11/19 07:11 10/14/19 06:32 Labs: Abnormal Lab Results - Last 24 Hours (Table) 10/14/19 10/14/19 10/14/19 Range/Units 11:55 16:52 19:56 POC Glucose (mg/dL) 396 H 266 H 239 H (75-99) mg/dL 10/15/19 Range/Units 06:38 POC Glucose (mg/dL) 203 H (75-99) mg/dL Assessment and Plan Assessment: COPD exacerbation likely due to acute bronchitis Chest tightness with elevated troponins Bacteremia Tachycardia Lung nodules Leukocytosis CAD Hypertension Dyslipidemia Obesity with BMI 35.4 Patient not quite back at baseline. Chest x-ray shows pulmonary fibrosis. Chest CT shows emphysematous changes with bilateral pulmonary nodules unchanged from previous exam. Passed 6 minute walk test. Plans: DuoNeb scheduled and as needed for shortness of breath and wheezing. Continue formoterol. Continue Pulmicort. 3 days of azithromycin for acute bronchitis. Transition Solu-Medrol to prednisone on discharge. Robitussin with codeine as needed for cough along with Tessalon Perles. Follow pulmonology recommendations. Initial troponin less than 0.012 with EKG showing sinus tachycardia. Troponin 0.046, 0.053, 0.078, 0.060 with EKG showing T-wave inversions. Plans: Likely related to COPD. demand ischemia from increased work of breathing. Blood culture positive staph epidermidis. Likely contaminant from skin floor. Plans: Repeat blood culture. Sinus. Heart rate around 100. Plans: Diltiazem started by cardiology. Likely due to increased work of breathing. Stable from previous chest CT. Plans: Follow-up pulmonology in the outpatient setting. Likely related to steroid use. No signs of infection. Plans: Continue to monitor. Plans: Continue aspirin, Lipitor and Plavix. Plans: Continue lisinopril and diltiazem. Monitor vitals, adjust medications as necessary. Plans: Continue Lipitor. Plans: Structured weight loss program. [Patient admitted for COPD exacerbation. Has improved but not quite back to baseline. We'll see how the patient does into this afternoon. Possible DC with cardiology and pulmonology clearance.]
[2019-10-15 11:23] LABS: Glucose,Whole Blood 271 mg/dL (75-99)
[2019-10-15 12:23] VITALS: PULSE 100
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
== END 2019-10-15 15:27 | disposition home health service (06) | DRG 191 ==
LOC: EC 14:22 → 4SSUR 17:06 → OBSVTOIN 10-11 15:05
PROVIDERS: ADMIT Internal Medicine; ATTEND Internal Medicine
DX: J44.0 Chronic obstructive pulmonary disease with (acute) lower respiratory infection (principal); H34.9 Unspecified retinal vascular occlusion; R78.81 Bacteremia; I24.8 Other forms of acute ischemic heart disease; I27.20 Pulmonary hypertension, unspecified; J20.9 Acute bronchitis, unspecified; J84.10 Pulmonary fibrosis, unspecified; J44.1 Chronic obstructive pulmonary disease with (acute) exacerbation; R91.1 Solitary pulmonary nodule; N40.0 Benign prostatic hyperplasia without lower urinary tract symptoms; I08.3 Combined rheumatic disorders of mitral, aortic and tricuspid valves; I25.10 Atherosclerotic heart disease of native coronary artery without angina pectoris; I10 Essential (primary) hypertension; I65.22 Occlusion and stenosis of left carotid artery; E78.5 Hyperlipidemia, unspecified; M54.9 Dorsalgia, unspecified; E66.9 Obesity, unspecified; Z68.35 Body mass index [BMI] 35.0-35.9, adult; Z79.82 Long term (current) use of aspirin; Z79.899 Other long term (current) drug therapy; Z87.891 Personal history of nicotine dependence; Z86.73 Personal history of transient ischemic attack (TIA), and cerebral infarction without residual deficits; Z90.49 Acquired absence of other specified parts of digestive tract; Z94.5 Skin transplant status
CPT/HCPCS: 36415; 71046; 71250; 80048; 80053; 82550; 82553; 83605; 83735; 83880; 84100; 84484; 85025; 85610; 85730; 87040; 87077; 87186; 93005; 93306; 94640; 94760; 96374; 99285

== ENCOUNTER → 2019-11-07 | Outpatient (CLI) | payer MEDICARE, OTHER ==
--- NOTE | 2019-11-10 14:43 | PE ---
Nuclear medicine PET/CT HISTORY: Lung nodule, initial Patient received 10.8 mCi F-18 FDG intravenously in delayed scanning was performed from the skull bas e to the mid thighs. Localization and attenuation correction CT scan was performed. Correlation to chest CT dated 10/11/2019, prior PET/CT 01/18/2018 Neck and chest: Findings are similar to prior exam. Pleural parenchymal changes show similar appearan ce, hypermetabolic uptake shows a similar distribution in the areas of abnormal increased attenuation in the upper lobes, SUV 4.1 on the right, 3.7 on the left. The hilar uptake, subcarinal uptake shows a similar appearance, SUV 3.4 on the left. There is extensive emphysematous change within the lungs as on prior. No pleural or pericardial effusion. Abdomen shows no significant interval change. No retroperitoneal uptake, no adrenal mass or liver mas s. Osseous structures are stable. IMPRESSION: Findings are similar to prior exam.
== END | disposition home or self-care (01) ==
LOC: RADPETMAIN 09:17
PROVIDERS: ATTEND Internal Medicine Critical Care Medicine
DX: R91.8 Other nonspecific abnormal finding of lung field (principal)
CPT/HCPCS: 78815; A9552

== ENCOUNTER → 2020-06-07 | Outpatient (CLI) | payer MEDICARE, OTHER ==
--- NOTE | 2020-06-07 09:39 | CT ---
EXAMINATION TYPE: CT chest w con DATE OF EXAM: 06/07/2020 COMPARISON: Prior CT October 11, [address] and older [address]. PET CT November 07, 2019 and older PET studies. HISTORY: Abnormal lung field CT DLP: 689.5 mGycm. Automated Exposure Control for Dose Reduction was Utilized. TECHNIQUE: CT scan of the thorax is performed following with IV Contrast, patient injected with 100 mL of Isovue 300. FINDINGS: LUNGS: Moderate to advanced emphysematous change greatest in the lung apices bilaterally remains pres ent. There is persistent irregular linear scarring with more nodular component posteriorly bilaterall y. On the right this area measures roughly 2.8 x 1.3 cm on axial image 16 not significantly changed f rom prior CT or PET CT studies with lateral inferior extension and some adjacent smaller areas of nod ularity . On the left area of concern measures 2 roughly 2.5 x 1.4 cm axial image 14 not significantl y changed from prior studies with lateral and posterior inferior extension. There is additional linea r scarring anteriorly in the right midlung near axial image 34 redemonstrated. Scattered subcentimete r nodules redemonstrated bilaterally for reference left lower lobe axial image 47 and right lower lob e posteriorly axial image 45. No definitive new or enlarging nodules noted. No pleural effusion or pn eumothorax is seen bilaterally. Mild central peribronchial wall thickening is stable presumed product of underlying COPD. MEDIASTINUM: There are stable prominent and enlarged enlarged bilateral hilar lymph nodes for referen ce axial images 25 through 31 not significant change from prior studies. Stable prominent and enlarge d mediastinal lymph nodes redemonstrated. For reference 2.0 x 1.9 cm subcarinal lymph node maximum is 28 is unchanged from multiple prior studies. No cardiomegaly or pericardial effusion is seen. Coron arsenio artery calcification is redemonstrated . Slightly more prominent focal noncalcified plaque left s ubclavian artery causing stenosis approaching 50% remains present coronal image 63 is redemonstrated. OTHER: Diffuse fatty infiltration of liver redemonstrated. Tiny dependent gallstone in gallbladder is now identified axial image 60. Multilevel spurring in the spine. Bilateral gynecomastia is redemonst rated. 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 Neoplasm is felt to be unlikely.
== END | disposition home or self-care (01) ==
LOC: RADCTMAIN 07:13
PROVIDERS: ATTEND Internal Medicine Critical Care Medicine
DX: R91.8 Other nonspecific abnormal finding of lung field (principal)
CPT/HCPCS: 82565; 84520; 71260; 36415; Q9967

== ENCOUNTER → 2022-03-21 | Outpatient (CLI) | payer MEDICARE, OTHER ==
--- NOTE | 2022-03-21 10:36 | US ---
EXAMINATION TYPE: US abdomen complete DATE OF EXAM: 03/21/2022 COMPARISON: NONE CLINICAL HISTORY: R79.89 OTHER SPECIFIED ABNORMAL FINDINGS OF BLOOD. EXAM MEASUREMENTS: Liver Length: 18.3 cm Gallbladder Wall: 0.2 cm CBD: 0.6 cm Spleen: 11.8 cm Right Kidney: 11.3 x 5.2 x 5.1 cm Left Kidney: 11.1 x 5.6 x 5.3 cm Patient of large body habitus carrying most of his weight in his abdomen. Study very limited. Patient didn't hold his breath when technologist requested it, further limiting study. Pancreas: Obscured by bowel gas Liver: severe attenuation, fatty infiltrate, upper limits of normal in size Gallbladder: cholelithiasis, limited views Evidence for sonographic Troy's sign: no CBD: wnl Spleen: wnl Right Kidney: hyperechoic mass measuring 2.9 x 3.0 x 2.4cm, probable cyst measuring 1.1 x 1.2 x 1.1c m, limited views Left Kidney: limited views Upper IVC: wnl as seen Abd Aorta: Mostly obscured by overlying bowel gas, small portion visualized wnl The intrahepatic portion of the IVC and proximal abdominal aorta are within normal limits. Common bi le duct is unremarkable. The visualized portions of the pancreas are homogenous. The spleen is unre markable. Kidneys are symmetric and free of hydronephrosis. IMPRESSION: 1. Hepatic steatosis versus underlying hepatocellular disease. 2. Uncomplicated cholelithiasis. 3. Hyperechoic mass upper pole right kidney requires further evaluation with CT of the abdomen.
== END | disposition home or self-care (01) ==
LOC: RADUSWWP 09:24
PROVIDERS: ATTEND Internal Medicine
DX: K80.20 Calculus of gallbladder without cholecystitis without obstruction (principal)
CPT/HCPCS: 76700

== ENCOUNTER → 2022-04-05 | Outpatient (CLI) | payer MEDICARE, OTHER ==
--- NOTE | 2022-04-05 15:22 | CT ---
EXAMINATION TYPE: CT abdomen wo con DATE OF EXAM: 04/05/2022 COMPARISON: PET scan dated 11/07/2019 and ultrasound dated 03/21/2022 HISTORY: Kidney cyst CT DLP: 937.7 mGycm Automated exposure control for dose reduction was used. TECHNIQUE: Helical acquisition of images was performed from the lung bases through the top of iliac crest to include entire abdomen. CONTRAST: Performed without Oral Contrast and without IV contrast. FINDINGS: LUNG BASES: COPD changes. Millimetric right posterior lung nodules, appreciated previously. LIVER/GB: Enlarged liver measuring 18.1 cm. Hepatic steatosis. Cholelithiasis without evidence of acu te cholecystitis. PANCREAS: No significant abnormality is seen. SPLEEN: No significant abnormality is seen. ADRENALS: No significant abnormality is seen. KIDNEYS: Questionable 2 mm faint calculus in the midpole of the left kidney. No definite renal lesion by this nonenhanced CT scan. BOWEL: No significant abnormality is seen. LYMPH NODES: No pathologically enlarged abdominal lymph nodes. Prominent retrocardiac lymph node, ap preciated in the previous CT chest. OSSEOUS STRUCTURES: Degenerative changes of the lower thoracic and lumbar spine. FREE AIR: No free air is visualized. OTHER: Scattered arterial atherosclerotic calcification. No free abdominal fluid. IMPRESSION: Questionable left renal nonobstructing calculus. The described right upper pole renal lesion on the p revious ultrasound is not well appreciated by this nonenhanced CT scan. Further enhanced CT scan or e nhanced MRI can be considered for better evaluation. Other findings as described above.
== END | disposition home or self-care (01) ==
LOC: RADCTMAIN 11:46
PROVIDERS: ATTEND Internal Medicine
DX: N28.1 Cyst of kidney, acquired (principal)
CPT/HCPCS: 74150

== ENCOUNTER → 2022-05-03 | Outpatient (CLI) | payer MEDICARE, OTHER ==
--- NOTE | 2022-05-03 11:55 | US ---
EXAMINATION TYPE: US kidneys/renal and bladder DATE OF EXAM: 05/03/2022 COMPARISON: CT abdomen and pelvis 04/05/2022 CLINICAL HISTORY: N28.1 KIDNEY CYST. Limited due to patient body habitus EXAM MEASUREMENTS: Right Kidney: 11.0 x 5.4 x 5.2 cm Left Kidney: 11.4 x 5.0 x 5.8 cm Right Kidney: Lateral anterior mid cystic lesion - 1.2 x 1.1 x 1.1 cm. Superior echogenic lesion = 2 .7 x 2.5 x 2.6 cm Left Kidney: No hydronephrosis or masses seen Bladder: Anechoic, moderately distended Bilateral Jets seen There is no evidence for hydronephrosis at this point in time. No nephrolithiasis is seen. No jony s are identified. The urinary bladder is anechoic. Bilateral ureteral jets are seen. IMPRESSION: Hyperechoic mass within the right kidney measuring up to 2.7 cm which is not definitively visualized on prior CT abdomen and pelvis without IV contrast on 04/05/2022. Dedicated MRI with and without IV co ntrast renal mass protocol is recommended.
== END | disposition home or self-care (01) ==
LOC: RADUSWWP 10:51
PROVIDERS: ATTEND Internal Medicine
DX: N28.1 Cyst of kidney, acquired (principal)
CPT/HCPCS: 76770

== ENCOUNTER → 2022-05-30 | Outpatient (CLI) | payer MEDICARE, OTHER ==
--- NOTE | 2022-05-30 11:07 | MR ---
EXAMINATION TYPE: MR abdomen wo/w con DATE OF EXAM: 05/30/2022 COMPARISON: Most recent ultrasound May 03, 2022 and older studies including CT abdomen April 05, 2022 and CTs back to 2018. HISTORY: Kidney cyst. Recent abnormal ultrasound CONTRAST: Standard multiplanar, multisequence MRI departmental protocol images were obtained without contrast a nd with 10 mL intravenous Gadavist gadolinium contrast. Imaging performed of the abdomen focusing on the bilateral kidneys. FINDINGS: Kidneys: Correlating with most recent ultrasound there is a well-circumscribed rounded mass posterior ly upper pole right kidney measuring 2.7 x 2.8 x 2.5 cm axial image 25 series 701 and coronal image 3 2. Dynamic postcontrast imaging shows heterogeneous enhancement of the solid component. Lesion is not ed more from older exams back through 2018. Occasional benign thin-walled tiny subcentimeter cysts sc attered throughout both kidneys is present seen better on MRI versus ultrasound. No hydronephrosis se en bilaterally. Patent draining right renal vein into IVC is noted Other: Diffuse signal dropout consistent with fatty infiltrative hepatocellular disease is redemonstr ated. Lung bases remain clear. The spleen, pancreas, and both adrenal glands remain within normal franklin its. There are tiny dependent gallstones within the gallbladder axial image 30 for reference. No susp icious bowel dilatation. No intra-abdominal ascites. No suspicious intra-abdominal adenopathy. IMPRESSION: Confirmation of suspicious solid mass posterior aspect upper pole right kidney worrisome for focal renal cell carcinoma. Advise surgical and interventional surgical referral. Patient may be a candidate for ablation treatment.
== END | disposition home or self-care (01) ==
LOC: RADMRIMAIN 08:23
PROVIDERS: ATTEND Family Medicine
DX: N28.1 Cyst of kidney, acquired (principal)
CPT/HCPCS: 74183; A9585

== ENCOUNTER → 2022-06-13 | Outpatient (CLI) | payer MEDICARE, OTHER ==
[2022-06-13 11:30] LABS: Basophils # (A) 0.1 k/uL (0-0.2); Basophils % (A) 1 %; Eosinophils # (A) 0.2 k/uL (0-0.7); Eosinophils % (A) 2 %; HCT 49.2 % (39.0-53.0); HGB 15.5 gm/dL (13.0-17.5); Lymphocytes # (A) 2.3 k/uL (1.0-4.8); Lymphocytes % (A) 17 %; MCHC 31.6 g/dL (31.0-37.0); Mean Platelet Volume 7.3; Monocytes # (A) 0.9 k/uL (0-1.0); Monocytes % (A) 6 %; Neutrophils # (A) 10.1 k/uL (1.3-7.7); Neutrophils % (A) 74 %; Platelet Count 306 k/uL (150-450); RBC 5.18 m/uL (4.30-5.90); RDW 13.5 % (11.5-15.5); WBC 13.7 k/uL (3.8-10.6)
== END | disposition home or self-care (01) ==
LOC: LABWHC1 10:07
PROVIDERS: ATTEND Internal Medicine
DX: D72.829 Elevated white blood cell count, unspecified (principal)
CPT/HCPCS: 36415; 85025

== ENCOUNTER → 2022-10-29 | Outpatient (CLI) | payer MEDICARE, OTHER ==
[2022-10-29 17:57] LABS: HCT 44.4 % (39.6-50.0); HGB 14.3 g/dL (13.0-17.0); MCH 30.2 pg (27.0-32.0); MCHC 32.2 g/dL (32.0-37.0); MCV 93.9 fL (80.0-97.0); Mean Platelet Volume 9.1 fL (9.5-12.2); NRBC Per 100 WBC 0 /100 WBCS (0.0-0.0); Platelet Count 251 X 10*3/uL (140-440); RBC 4.73 X 10*6/uL (4.40-5.60); RDW 14.3 % (11.5-14.5); WBC 9.09 X 10*3/uL (4.50-10.00)
[2022-10-29 19:32] LABS: African American GFR (CKD) 77.9 (60.0-200.0); Anion Gap 14.1 mmol/L (10.00-18.00); BUN/Creat Ratio 16.91 Ratio (12.00-20.00); Blood Urea Nitrogen 18.6 mg/dL (9.0-27.0); Carbon Dioxide 20.4 mmol/L (20.0-27.5); Non-African American GFR(CKD) 67.2 (60.0-200.0); Potassium 4.5 mmol/L (3.5-5.5)
== END | disposition home or self-care (01) ==
LOC: LABWHC1 12:53
PROVIDERS: ATTEND Radiology Vascular & Interventional Radiology
DX: C64.1 Malignant neoplasm of right kidney, except renal pelvis (principal)
CPT/HCPCS: 36415; 80048; 85027

== ENCOUNTER → 2022-10-29 | Outpatient (CLI) | payer MEDICARE, OTHER ==
--- NOTE | 2022-10-30 14:10 | MR ---
EXAMINATION TYPE: MR abdomen wo/w con DATE OF EXAM: 10/29/2022 2:21 PM INDICATION: Patient age:Male; 72 years old; Reason for study: C64.1 MALIGNANT NEOPLASM OF RIGHT KIDNEY. Follow up comparison of right renal tumor . COMPARISON: MRI 05/30/2022, ultrasound 05/03/2022, CT 04/05/2022. TECHNIQUE: Multiplanar multi-sequence imaging was performed without contrast. Post contrast imaging was performed. Post IV contrast subtraction images were also submitted for review. IV Contrast: 10 cc Gadavist FINDINGS: LOWER CHEST: No gross irregularity. ABDOMEN Liver: Unremarkable. Gallbladder and Bile ducts: Gallstones layering dependently. Pancreas: Unremarkable. Spleen: Unremarkable. Adrenal glands: Unremarkable. Kidneys: Right: Increase in size of right solid renal neoplasm now measuring up to 3.3 x 3.0 x 2.8 cm, there i s intrinsic high T1 signal immediately adjacent to this lesion suggesting hemorrhage. As well as new high T1 signal extending away into the perirenal fat which is high signal on subtraction imaging. The re is some peripheral enhancement around this focal fat with central enhancing septa. In totality the exophytic portion with the fat measures 4.4 x 4.8 x 3.9 cm. Left:. No evidence of obstructive uropathy. No solid enhancing renal masses. Stomach and Bowel: Unremarkable as visualized. Peritoneum: No evidence of pneumoperitoneum, free fluid, or adenopathy. Vasculature: Unremarkable. No aortic aneurysm. Musculoskeletal: The osseous structures appear intact. Abdominal wall: Unremarkable. IMPRESSION: Right renal mass which has increased in size and now with findings concerning for some local hemorrha ge. Tissue sampling recommended. A Page level critical message alert has been initiated for Gavino Goetz MD via the [employer] Critical Results System on 10/30/2022 2:07 PM. This message alert has been sent to Baljit Butcher via the preferences provided by the clinician for the receipt of Radiology Critical Findings. [employer] ID [id number].
== END | disposition home or self-care (01) ==
LOC: RADMRIMAIN 13:21
PROVIDERS: ATTEND Radiology Vascular & Interventional Radiology
DX: C64.1 Malignant neoplasm of right kidney, except renal pelvis (principal)
CPT/HCPCS: 80048; 85027; 74183; 36415; A9585

== ENCOUNTER → 2023-01-28 | Outpatient (CLI) | payer MEDICARE, OTHER ==
--- NOTE | 2023-01-28 15:45 | MR ---
EXAMINATION TYPE: MR abdomen wo/w con DATE OF EXAM: 01/28/2023 2:27 PM INDICATION: Patient age:Male; 72 years old; Reason for study: C64.1 MALIGNANT NEOPLASM OF RIGHT KIDNEY; [facility]. COMPARISON: MRI 10/29/2022, 05/30/2022, ultrasound 05/03/2022, CT 04/05/2022. TECHNIQUE: Multiplanar multi-sequence imaging was performed without contrast. Post contrast imaging was performed. Post IV contrast subtraction images were also submitted for review. IV Contrast: 9 cc Gadavist FINDINGS: LOWER CHEST: No gross irregularity. ABDOMEN Liver: Hepatic steatosis. Gallbladder and Bile ducts: Gallstones layering dependently. Pancreas: Unremarkable. Spleen: Unremarkable. Adrenal glands: Unremarkable. Kidneys: Right: Marginally decreased in size of right solid renal neoplasm now measuring up to 3.2 x 2.4 cm, p reviously 3.3 x 3.0 cm. There is similar intrinsic high T1 signal immediately adjacent to this lesion as well as extending way into the peroneal fat suggesting prior hemorrhage. There is some similar pe ripheral enhancement around this focal fat with central enhancing septa. In totality the exophytic po rtion with the fat measures 4.6 x 4.0 cm, previously 5.0 x 4.0 cm measuring when measured with simila r technique. Stable subcentimeter cysts. Left:. No evidence of obstructive uropathy. No solid enhancing renal masses. Stable left renal cyst. Stomach and Bowel: Unremarkable as visualized. Peritoneum: No evidence of pneumoperitoneum, free fluid, or adenopathy. Vasculature: Unremarkable. No aortic aneurysm. Musculoskeletal: The osseous structures appear intact. Abdominal wall: Unremarkable. IMPRESSION: Redemonstration of right renal mass which is stable to marginally decreased in size from prior examin ation with similar appearance of local prior hemorrhage. This again is suspicious for renal cell carc inoma.
== END | disposition home or self-care (01) ==
LOC: RADMRIMAIN 12:50
PROVIDERS: ATTEND Radiology Vascular & Interventional Radiology
DX: C64.1 Malignant neoplasm of right kidney, except renal pelvis (principal); N28.89 Other specified disorders of kidney and ureter
CPT/HCPCS: 74183; A9585

== ENCOUNTER → 2023-01-28 | Outpatient (CLI) | payer MEDICARE, OTHER ==
[2023-01-28 22:13] LABS: ALT 68 U/L (10-49); AST 47 U/L (14-35); African American GFR (CKD) 85.3 (60.0-200.0); BUN/Creat Ratio 14.61 Ratio (12.00-20.00); Blood Urea Nitrogen 14.9 mg/dL (9.0-27.0); Calcium 9.5 mg/dL (8.7-10.3); Carbon Dioxide 20.9 mmol/L (20.0-27.5); Chloride 104 mmol/L (96-109); Chol/HDL Ratio 3.41 Ratio; Glucose 134 mg/dL (70-110); LDL Cholesterol,Calculated 57.1 mg/dL (0.0-131.0); Non-African American GFR(CKD) 73.6 (60.0-200.0); Potassium 4.7 mmol/L (3.5-5.5); Sodium 140 mmol/L (135-145)
[2023-01-28 22:58] LABS: HCT 48.2 % (39.6-50.0); HGB 15.6 g/dL (13.0-17.0); MCH 30.6 pg (27.0-32.0); MCHC 32.4 g/dL (32.0-37.0); MCV 94.7 fL (80.0-97.0); NRBC Per 100 WBC 0 /100 WBCS (0.0-0.0); Platelet Count 276 X 10*3/uL (140-440); RBC 5.09 X 10*6/uL (4.40-5.60); RDW 13.7 % (11.5-14.5); WBC 10.25 X 10*3/uL (4.50-10.00)
== END | disposition home or self-care (01) ==
LOC: LABWHC1 12:25
PROVIDERS: ATTEND Nurse Practitioner Adult Health
DX: C64.1 Malignant neoplasm of right kidney, except renal pelvis (principal); E78.2 Mixed hyperlipidemia
CPT/HCPCS: 36415; 80048; 80061; 84450; 84460; 85027

== ENCOUNTER → 2023-08-21 | Outpatient (CLI) | payer MEDICARE, OTHER ==
[2023-08-22 02:31] LABS: Chol/HDL Ratio 3.66 Ratio; LDL Cholesterol,Calculated 59.9 mg/dL (0.0-131.0)
[2023-08-22 03:53] LABS: ALT 53 U/L (10-49); AST 54 U/L (14-35)
== END | disposition home or self-care (01) ==
LOC: LABWHC1 11:07
PROVIDERS: ATTEND Internal Medicine Interventional Cardiology
DX: E78.2 Mixed hyperlipidemia (principal)
CPT/HCPCS: 36415; 80061; 84450; 84460

== ENCOUNTER 2024-01-13 10:57 | Emergency (ER) | payer MEDICARE, OTHER ==
[2024-01-13 12:01] VITALS: RESP 18; TEMP 97.8
--- NOTE | 2024-01-13 12:22 | ED ---
General Adult HPI - General Chief complaint: Extremity Injury, Upper Stated complaint: L Shoulder Pain Time Seen by Provider: 01/13/24 12:05 Source: patient, RN notes reviewed, old records reviewed Mode of arrival: ambulatory Limitations: no limitations - History of Present Illness Initial comments: 73-year-old male with left shoulder pain. Patient states that he had felt a popping sensation yesterday and has had pain with movement since that time. Patient states he was pushing off to No chest pain or dyspnea. No specif stand up from a chair. N head or neck trauma. - Related Data Home Medications Medication Instructions Recorded Confirmed Atorvastatin [Lipitor] 10 mg PO HS 01/03/17 10/10/19 Loratadine [Claritin] 10 mg PO DAILY 02/13/17 10/10/19 Aspirin 325 mg PO DAILY 02/12/18 10/10/19 lisinopriL [Zestril] 10 mg PO DAILY 02/12/18 10/10/19 Multivitamins, Thera [Multivitamin 1 tab PO DAILY 10/10/19 10/10/19 (formulary)] Previous Rx's Medication Instructions Recorded Albuterol Inhaler [Ventolin Hfa 1 - 2 puff INHALATION RT-Q6H PRN 10/13/19 Inhaler] #1 inhaler Azithromycin [Zithromax] 500 mg PO DAILY #2 tab 10/13/19 Budesonide-Formot 160-4.5 Mcg 2 puff INHALATION BID #1 inhaler 10/13/19 [Symbicort 160-4.5 Mcg Inhaler] Ipratropium-Albuterol Nebulize 3 ml INHALATION RT-Q2H PRN #90 10/13/19 [Duoneb 0.5 mg-3 mg/3 ml Soln] ampul.neb predniSONE 50 mg PO DAILY #3 tablet 10/13/19 Ibuprofen 400 mg PO TID PRN 5 Days #15 tablet 01/13/24 Allergies Allergy/AdvReac Type Severity Reaction Status Date / Time No Known Allergies Allergy Verified 01/13/24 11:27 Review of Systems ROS Statement: Those systems with pertinent positive or pertinent negative responses have been documented in the HPI. ROS Other: All systems not noted in ROS Statement are negative. Past Medical History Past Medical History: Asthma, Coronary Artery Disease (CAD), CVA/TIA, Hyperlipidemia, Hypertension Additional Past Medical History / Comment(s): left carotid artery totally blocked, eyes water r/t cva History of Any Multi-Drug Resistant Organisms: None Reported Past Surgical History: Appendectomy, Orthopedic Surgery Additional Past Surgical History / Comment(s): thumb, multiple sx for skin graft r/t sidhu from waist down. was in hospital for 2 months [facility] Past Anesthesia/Blood Transfusion Reactions: No Reported Reaction Past Psychological History: No Psychological Hx Reported Past Alcohol Use History: None Reported Past Drug Use History: None Reported - Past Family History Brother(s) Family Medical History: Cancer General Exam Limitations: no limitations General appearance: alert, in no apparent distress Head exam: Present: atraumatic, normocephalic Eye exam: Present: normal appearance, PERRL ENT exam: Present: normal exam Neck exam: Present: normal inspection. Absent: tenderness, meningismus Respiratory exam: Present: normal lung sounds bilaterally. Absent: respiratory distress, wheezes Cardiovascular Exam: Present: regular rate, normal rhythm GI/Abdominal exam: Present: soft. Absent: distended, tenderness, guarding Extremities exam: Present: other (Left arm decreased range of movement secondary to pain at the shoulder. Distal pulses intact. ). Absent: full ROM Course Vital Signs 01/13/24 11:23 Temperature 97.8 F Pulse Rate 76 Respiratory 18 Rate Blood Pressure 148/83 O2 Sat by Pulse 97 Oximetry Medical Decision Making - Medical Decision Making Was pt. sent in by a medical professional or institution (Dr. PA, SPECIAL SERVICE OFFICER, urgent care, hospital, or [facility]...) When possible be specific @ -No Did you speak to anyone other than the patient for history (EMS, parent, family, police, friend...)? What history was obtained from this source @ -No Did you review nursing and triage notes (agree or disagree)? Why? @ -I reviewed and agree with nursing and triage notes Were old charts reviewed (outside hosp., previous admission, EMS record, old EKG, old radiological studies, urgent care reports/EKG's, [facility] records)? Report findings @ -No old charts were reviewed Differential Diagnosis (chest pain, altered mental status, abdominal pain women, abdominal pain men, vaginal bleeding, weakness, fever, dyspnea, syncope, headache, dizziness, GI bleed, back pain, seizure, CVA, palpatations, mental health, musculoskeletal)? @ -Differential Musculoskeletal Muscular strain, contusion, ligament sprain, fracture, arthritis, septic arthritis, bursitis, cellulitis, muscle spasm, nerve compression, DVT, arterial occlusion, herpes zoster, electrolyte abnormality, tumor.... This is not meant to be in all inclusive list EKG interpreted by me (3pts min.). @ -As above X-rays interpreted by me (1pt min.). @ -[X-ray of the left shoulder is negative for acute fracture or dislocation CT interpreted by me (1pt min.). @ -None done U/S interpreted by me (1pt. min.). @ -None done What testing was considered but not performed or refused? (CT, X-rays, U/S, labs)? Why? @ -None What meds were considered but not given or refused? Why? @ -None Did you discuss the management of the patient with other professionals (professionals i.e. , PA, SPECIAL SERVICE OFFICER, lab, RT, psych nurse, protective services social worker, research nutritionist, teacher, senior grants officer, welfare case worker)? Give summary @ -No Was smoking cessation discussed for >3mins.? @ -No Was critical care preformed (if so, how long)? @ -No Were there social determinants of health that impacted care today? How? (Homelessness, low income, unemployed, alcoholism, drug addiction, transportation, low edu. Level, literacy, decrease access to med. care, prison, rehab)? @ -No Was there de-escalation of care discussed even if they declined (Discuss DNR or withdrawal of care, Hospice)? DNR status @ -No What co-morbidities impacted this encounter? (DM, HTN, Smoking, COPD, CAD, Cancer, CVA, ARF, Chemo, Hep., AIDS, mental health diagnosis, sleep apnea, morbid obesity)? @ -None Was patient admitted / discharged? Hospital course, mention meds given and route, prescriptions, significant lab abnormalities, going to OR and other pertinent info. @73-year-old male with left shoulder pain after popping sensation when he stood from a chair. He does have limited range secondary to pain. X-ray is negative for fracture or dislocation. Patient will be placed in a sling given anti- inflammatories. Instructed to ice the shoulder and if symptoms should persist he should follow-up with orthopedics. Undiagnosed new problem with uncertain prognosis? @ -No Drug Therapy requiring intensive monitoring for toxicity (Heparin, Nitro, Insulin, Cardizem)? @ -No Were any procedures done? @ -No Diagnosis/symptom? @ -Shoulder sprain Acute, or Chronic, or Acute on Chronic? @ -[Acute Uncomplicated (without systemic symptoms) or Complicated (systemic symptoms)? @ -Default Side effects of treatment? @ -No Exacerbation, Progression, or Severe Exacerbation? @ -No Poses a threat to life or bodily function? How? (Chest pain, [place], NH, pneumonia, PE, COPD, DKA, ARF, appy, cholecystitis, CVA, Diverticulitis, Homicidal, Suicidal, threat to staff... and all critical care pts) @ -No Disposition Clinical Impression: Strain of shoulder Disposition: HOME SELF-CARE Condition: Fair Instructions (If sedation given, give patient instructions): Shoulder Sprain (ED) Prescriptions: Ibuprofen 400 mg PO TID PRN 5 Days #15 tablet PRN Reason: Pain Is patient prescribed a controlled substance at d/c from ED?: No Referrals: None,Stated [Primary Care Provider] - 1-2 days Juan Pablo Archibald DO [Doctor of Osteopathic Medicine] - 1-2 days Time of Disposition: 13:03
--- NOTE | 2024-01-13 12:34 | XR ---
EXAMINATION TYPE: XR shoulder complete LT DATE OF EXAM: 01/13/2024 12:22 PM CLINICAL INDICATION:Male, 73 years old with history of Pain; COMPARISON: None TECHNIQUE: XR shoulder complete LT; examined in AP, internally rotated and scapular Y projections. FINDINGS: No evidence of acute osseous pathology, joint dislocation, or soft tissue swelling. The remaining po rtions of the visualized chest are unremarkable. Mild degeneration changes of the acromion, distal c lavicle with osteophyte formation. There is osteophyte formation of the glenoid and humeral head. The re is joint space narrowing of glenohumeral joint IMPRESSION: 1. No acute osseous pathology. 2. Moderate left shoulder osteoporosis.
[2024-01-13 13:30] VITALS: BP 142/64; PULSE 71
== END 2024-01-13 13:17 | disposition home or self-care (01) ==
LOC: EC 10:57
DX: S43.402A Unspecified sprain of left shoulder joint, initial encounter (principal); X50.0XXA Overexertion from strenuous movement or load, initial encounter
CPT/HCPCS: 99283

== ENCOUNTER → 2024-03-18 | Outpatient (CLI) | payer MEDICARE, OTHER ==
--- NOTE | 2024-03-27 23:07 | MR ---
EXAMINATION TYPE: MR shoulder LT wo con DATE OF EXAM: 03/18/2024 COMPARISON: Radiograph 01/13/2024 HISTORY: 73-year-old male S49.92XD UNSP INJURY OF LEFT SHOULDER AND UPPER AR, Left shoulder pain x1 m onth, painful to raise arm TECHNIQUE: Multiplanar, multisequence imaging of the left shoulder is performed without contrast. FINDINGS: The long head biceps tendon is not visualized and may be torn and retracted. Paucity of fibers at the lesser tuberosity suggests a significant tear of the subscapularis tendon. Severe degenerative change at the acromioclavicular joint with joint space narrowing, small effusion, reactive subchondral marrow signal change, and bulky marginal spurring. There is abutment of the und erlying myotendinous junction of the supraspinatus. Mild to moderate effusion in the anterior subacromial/subdeltoid bursa. Severely heterogeneous supraspinatus tendon with disorganized anterior to mid fibers possibly reflect ing extensive tearing and/or low signal tear measuring 1.5 cm AP by 1.6 cm long. There is some reacti ve edema which tracks along the miscellaneous muscle belly. Intrasubstance change throughout the infraspinatus tendon but without any high-grade partial or full- thickness tear. Mild fatty infiltration of the subscapularis muscle belly. Scattered mild degenerative changes glenohumeral joint. No discrete labral tear given nonarthrographic technique and no paralabral cyst. No Hill-Sachs deformity or os acromiale. Heterogeneous red marrow is noted and can be seen in the setting of anemia, obesity, smoking, and chr onic disease. IMPRESSION: 1. Marked diffuse rotator cuff tendinosis, especially severe involving the supraspinatus tendon. Ther e is disorganized appearance to the anterior to mid supraspinatus tendon fibers. This could represent extensive partial thickness tearing and/or a low signal high-grade tear measuring 1.5 x 1.6 cm. Reac tive edema tracking into the supraspinatus muscle belly. 2. Nonvisualization of the long head biceps tendon. This may be torn and retracted. 3. Paucity of insertional fibers at the lesser tuberosity suggesting a significant, possibly complete tear of the subscapularis tendon. Mild fatty infiltration of its muscle belly. 4. 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
== END | disposition home or self-care (01) ==
LOC: RADMRIMAIN 13:23
PROVIDERS: ATTEND Internal Medicine
DX: S49.92XD Unspecified injury of left shoulder and upper arm, subsequent encounter (principal); M19.012 Primary osteoarthritis, left shoulder; M67.814 Other specified disorders of tendon, left shoulder

== ENCOUNTER → 2024-07-08 | Outpatient (CLI) | payer MEDICARE, OTHER ==
[2024-07-08 15:33] LABS: ALT 69 U/L (4-49); AST 70 U/L (17-59); African American GFR (CKD) >90 (>60 ml/min/1.73 sqM); Albumin/Globulin Ratio 1.5; Alkaline Phosphatase 132 U/L (38-126); Anion Gap 10 mmol/L; Blood Urea Nitrogen 18 mg/dL (9-20); Calcium 10.4 mg/dL (8.4-10.2); Carbon Dioxide 23 mmol/L (22-30); Chloride 103 mmol/L (98-107); Globulin 3.4 g/dL; Glucose 171 mg/dL (74-99); Non-African American GFR(CKD) 82 (>60 ml/min/1.73 sqM); Potassium 4.7 mmol/L (3.5-5.1); Sodium 136 mmol/L (137-145); Total Bilirubin 1.4 mg/dL (0.2-1.3); Total Protein 8.4 g/dL (6.3-8.2)
--- NOTE | 2024-07-08 16:26 | CT ---
EXAMINATION TYPE: CT abdomen wo/w con CT DLP: 2181 mGycm, Automated exposure control for dose reduction was used. 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 Contrast used:90ml mL of Isovue 300 without and with IV Contrast, (none if empty) Oral contrast used: with Oral Contrast (none if empty) FINDINGS: LOWER CHEST: Left lower lung pulmonary nodules measuring 4 and 6 mm series 3 image 14. Right lower williams ng pulmonary nodule measuring 4 mm series 3 image 18 and other scattered nodules under 4 mm present. These all appears stable from 12/16/2023 Aortic valve consultations present. ABDOMEN LIVER: Diffusely hypoattenuating parenchyma. GALLBLADDER AND BILE DUCTS: Layering increased densities within the lumen consistent with gallstones are present. PANCREAS: Unremarkable. SPLEEN: Unremarkable. ADRENAL GLANDS: Unremarkable. KIDNEYS AND URETERS: Right renal fat-containing lesion measuring 35 mm with a mural solid component w hich may be smaller in size compared to prior now measuring 17 mm previously 23 mm. Possibly represen ting hemorrhage. No evidence for hydronephrosis. Left nonobstructing calculi measuring up to 3 mm. PELVIS BLADDER: Unremarkable REPRODUCTIVE: Unremarkable. ABDOMEN & PELVIS STOMACH AND BOWEL: No evidence of bowel obstruction. PERITONEUM/RETROPERITONEUM: No evidence of pneumoperitoneum or free fluid. VASCULATURE: No evidence of aortic aneurysm. MUSCULOSKELETAL: No acute osseous abnormalities LYMPH NODES: No gross evidence for lymphadenopathy. SOFT TISSUE/ABDOMINAL WALL: Unremarkable IMPRESSION: 1. Stable pulmonary suspected posttreatment changes right kidney with suspected prior hemorrhage. No enlarging mass identified. No lymphadenopathy. 2. Stable pulmonary nodule's. 3. Cholelithiasis. 4. Hepatic steatosis. 5. Nonobstructing left renal calculi. [facility], Workstation: [id number], 07/08/2024 4:24 PM
== END | disposition home or self-care (01) ==
LOC: RADCTMAIN 13:41
PROVIDERS: ATTEND Radiology Vascular & Interventional Radiology
DX: C64.1 Malignant neoplasm of right kidney, except renal pelvis
CPT/HCPCS: 36415; 74170; 80053

== ENCOUNTER → 2024-12-10 | Outpatient (CLI) | payer MEDICARE, OTHER ==
[2024-12-10 15:07] LABS: African American GFR (CKD) >90 (>60 ml/min/1.73 sqM); Blood Urea Nitrogen 16 mg/dL (9-20); Non-African American GFR(CKD) 80 (>60 ml/min/1.73 sqM)
--- NOTE | 2024-12-10 19:30 | CT ---
EXAMINATION TYPE: CT ChestAbdPelvis w con DATE OF EXAM: 12/10/2024 4:41 PM COMPARISON: CT abdomen 07/08/2024, CT chest 06/07/2020 CLINICAL INDICATION: Male, 74 years old with history of Z85.528 PERSONAL HX OF KIDNEY CANCER, f/u kid sae ca TECHNIQUE: CT ChestAbdPelvis w con , with sagittal coronal reformats. If MIP/3-D images were created, there are created on a separate workstation. Contrast used:100ml mL of Isovue 300 with IV Contrast, (none if empty) Oral contrast used: with Oral Contrast (none if empty) CT DLP: 2207.8 mGycm, Automated exposure control for dose reduction was used. FINDINGS: CT CHEST: Portion of the thyroid visualized is normal. There is a 3.2 x 2.2 cm mass at the posterior left apex. There is a 2.4 cm mass in the upper right williams ng field. Streaky densities are extending from the suprahilar regions bilaterally. There is some right hilar adenopathy measuring 1.2 cm and 1.6 cm. There is a right paratracheal lymph node which is somewhat prominent measuring 0.9 cm. There is additional pretracheal lymph node measur ing 1.4 cm. A periaortic node measures 1.1 cm. Large subcarinal lymph node measuring 2.2 cm is presen t. Emphysematous changes are present with large blebs and bulla present bilaterally. Additional small n odules are identified, example image 40 right base, image 37 left base, peripheral right lung image 3 2, posterior right lung image 23, left upper lung field, images 11-12. The ascending aorta diameter at the level of the main pulmonary artery is 3.4 cm. The main pulmonary artery diameter at the bifurcation is 3.[address] ABDOMEN: Liver: There is moderate fatty infiltration to the liver. No discrete masses are evident. Spleen: Normal Pancreas: Normal Adrenal glands: The adrenal glands are normal. Gallbladder: Gallstones are present. Kidneys: There is a low density heterogenous mass in the posterior lateral right renal apex measuring 3.4 cm. This is larger than 3.2 cm previous. Couple of tiny cortical renal cysts are present. No hyd ronephrosis is present. Delayed images were obtained through the kidneys, which remain unremarkable . Aorta: Vascular calcification is within the aorta. Inferior vena cava: Normal. CT PELVIS: Loops of bowel within the abdomen and pelvis are normal. This study is without oral contrast limi ting bowel evaluation. Appendix: Normal as visualized. Urinary bladder: Normal. Genitourinary structures: Prostate is prominent Osseous structures: No suspicious lytic or sclerotic lesions. IMPRESSION: 1. Multiple lung masses and punctate nodularity. Findings appear to be present previously. Some cardona e from the old exam is evident. 2. Enlarged mediastinal lymphadenopathy. 3. Extensive emphysematous changes. 4. Enlarging heterogenous hypoechoic mass superior pole right kidney. [facility], , 12/10/2024 7:28 PM
== END | disposition home or self-care (01) ==
LOC: RADCTMAIN 14:25
PROVIDERS: ATTEND Internal Medicine Hematology & Oncology
DX: J43.9 Emphysema, unspecified (principal); D72.829 Elevated white blood cell count, unspecified; N28.89 Other specified disorders of kidney and ureter; R91.8 Other nonspecific abnormal finding of lung field; R59.0 Localized enlarged lymph nodes; Z71.3 Dietary counseling and surveillance; Z85.528 Personal history of other malignant neoplasm of kidney
CPT/HCPCS: 82565; 84520; 71260; 74177; 36415; Q9967

== ENCOUNTER 2025-01-08 08:40 | Day surgery (SDC) | payer MEDICARE, OTHER ==
[2025-01-06 14:55] VITALS: BMI 43.5
[~2025-01-08 08:40] MED LIST changes: -DEXAMETHASONE SOD PHOSPHATE 10 MG/ML 1 ML VIAL IV ONE; -LIDOCAINE 1% 20 ML VIAL (10MG/ML) FOR IV START INTRADERMA PRN; -MORPHINE SULFATE 2 MG/ML SYRINGE IV PRN; -ONDANSETRON ODT 4 MG TAB PO ONE; -Pre Op ABX Message 1 EACH MISC MISCELLANE ONE
[2025-01-08] MEDS: IV FLUID CONTINUATION 1,000 ML IV ONE ×2 (09:21→10:08)
[2025-01-08 09:33] VITALS: TEMP 97.2
[2025-01-08 09:57] LABS: Glucose,Whole Blood 238 mg/dL (70-110)
[2025-01-08] MEDS ORDERED: LIDOCAINE 1% INJ 10MG/ML (20 ML MDV) ONE (10:09)
[2025-01-08] MEDS ORDERED: PROPOFOL 10 MG/ML 20 ML VIAL IV ONE (10:09)
--- NOTE | 2025-01-08 10:31 | P.PCN ---
Date of Procedure: 01/08/25 Procedure(s) Performed: BRIEF HISTORY: Patient is a 74-year-old pleasant white male scheduled for an elective colonoscopy as a part of evaluation of iron deficiency anemia. PROCEDURE PERFORMED: Colonoscopy. PREOPERATIVE DIAGNOSIS: Iron deficiency anemia. IV sedation per Anesthesia. PROCEDURE: After informed consent was obtained, the patient, was brought into the endoscopy unit. IV sedation was administered by Anesthesia under continuous monitoring. Digital rectal examination was normal. Initially the Olympus CF-160 flexible video colonoscope was then inserted in the rectum, gradually advanced into the cecum without any difficulty. Careful examination was performed as the scope was gradually being withdrawn. Ileocecal valve and the appendiceal orifice were visualized and appeared normal. Prep was excellent. Mucosa of the cecum, ascending colon, transverse colon, appeared normal. The descending colon there was a 5 mm polyp removed by cold snare polypectomy. In the sigmoid colon there was a 6 mm polyp removed by cold snare polypectomy. Rest of the descending colon, sigmoid colon, and rectum appeared normal. Retroflexion was performed in the rectum and grade 2 internal hemorrhoids were seen. The patient tolerated the procedure well. IMPRESSION: 5 mm descending colon polyp status post cold snare polypectomy 6 mm sigmoid colon polyp status post cold snare polypectomy Scattered sigmoid diverticulosis Grade 2 internal hemorrhoids RECOMMENDATIONS: Findings of this examination were discussed with the patient as well as his family. He was advised to follow-up with the biopsy results. If the biopsy reveals adenoma he can have repeat scope in 5 years..
[2025-01-08 10:55] VITALS: BP 118/56; PULSE 75; RESP 16
== END 2025-01-08 11:15 | disposition home or self-care (01) ==
LOC: ORWHC2ENDO 08:40
PROVIDERS: ATTEND Internal Medicine Gastroenterology
DX: D12.5 Benign neoplasm of sigmoid colon (principal); K57.30 Diverticulosis of large intestine without perforation or abscess without bleeding; K64.1 Second degree hemorrhoids; D50.9 Iron deficiency anemia, unspecified; I10 Essential (primary) hypertension; E78.5 Hyperlipidemia, unspecified; I25.10 Atherosclerotic heart disease of native coronary artery without angina pectoris; E11.51 Type 2 diabetes mellitus with diabetic peripheral angiopathy without gangrene; K21.9 Gastro-esophageal reflux disease without esophagitis; J44.89 Other specified chronic obstructive pulmonary disease; Z86.73 Personal history of transient ischemic attack (TIA), and cerebral infarction without residual deficits; Z79.84 Long term (current) use of oral hypoglycemic drugs; Z79.82 Long term (current) use of aspirin; Z79.899 Other long term (current) drug therapy; Z90.49 Acquired absence of other specified parts of digestive tract; Z79.51 Long term (current) use of inhaled steroids; Z87.891 Personal history of nicotine dependence
CPT/HCPCS: 45385; J2003; J2704; 88305

== ENCOUNTER → 2025-01-22 | Outpatient (CLI) | payer MEDICARE, OTHER ==
--- NOTE | 2025-01-24 12:37 | PE ---
EXAMINATION TYPE: PET CT fusion skull to thigh DATE OF EXAM: 01/22/2025 CLINICAL INDICATION:Male, 74 years old with history of C64.2 renal ca; TECHNIQUE: Following the intravenous administration of 9.91 mCi of F-18 FDG, whole body images are performed from the skull base to the Mid thigh. Images are reviewed on the computer in the coronal, axial, and sagittal planes. Reconstructed rotating images are created on independent workstation and reviewed on the computer. A non-contrast CT is performed in conjunction with the PET scan. Glucose level 233 mg/dL CT DLP: 1001 mGycm, Automated exposure control for dose reduction was used. COMPARISON: CT 06/07/2020, 12/10/2024, PET/CT 01/18/2018, MRI: None FINDINGS: Limited evaluation due to elevated blood glucose levels. Mediastinal SUV mean is 2.5. Hepatic parenchyma SUV mean is 2.2. SKULL BASE AND NECK: CHEST, MEDIASTINUM, AND HILAR REGION: Consolidation changes in lung apices next SUV on the right 5.9 on the left 4.4. Images are somewhat e longated extending towards the periphery. These findings have been seen dating back to 06/07/2020. Prominent lymph nodes in the mediastinum likely reactive. Examples include: * Right low paratracheal lymph node max SUV 4.7, measuring 9 mm in short axis. * AP window 10 mm short axis max SUV 4.5. * Subcarinal max SUV 4.7 measuring up to 15 mm ABDOMEN AND PELVIS: Partially fat-containing lesion of the right kidney superior pole posteriorly with some soft tissue d ensity surrounding it measuring 36 3.6 x 2.9 cm previously on 01/28/2023 this measured up to 3.8 x 4.5 cm. Evaluation max SUV is limited due to close proximity to collecting system no significant uptake within the tumor itself max SUV 2.6. MUSCULOSKELETAL STRUCTURES: No suspicious radiotracer activity. OTHER CT: Atherosclerosis of the arterial vasculature including the coronary arteries. Aortic valve c alcifications. Hepatic steatosis. Cholelithiasis. Bilateral fat-containing inguinal hernias. Moderate paraseptal emphysema changes with scarring. IMPRESSION: Limited evaluation due to elevated blood glucose levels. 1. Consolidation changes in the lung apices felt to secondary to infectious/inflammatory process giv en symmetrical appearance bilaterally. Consider short-term follow-up CT chest with contrast in 3-6 mo nths to reassess. Findings are seen dating back to 06/07/2020 2. Right renal lesion which is decreased in size from prior MRI 01/28/2023 no suspicious FDG avid les ions. No lytic lesions identified. [facility], , 01/24/2025 12:35 PM
== END | disposition home or self-care (01) ==
LOC: RADPETMAIN 09:26
PROVIDERS: ATTEND Internal Medicine Critical Care Medicine
DX: C64.2 Malignant neoplasm of left kidney, except renal pelvis (principal); R73.9 Hyperglycemia, unspecified; J43.9 Emphysema, unspecified; K76.0 Fatty (change of) liver, not elsewhere classified; K40.90 Unilateral inguinal hernia, without obstruction or gangrene, not specified as recurrent; I35.8 Other nonrheumatic aortic valve disorders
CPT/HCPCS: 78815; A9552

== ENCOUNTER 2025-05-07 10:50 | Day surgery (SDC) | payer MEDICARE, OTHER ==
[2025-05-04 10:53] VITALS: BMI 43.5
--- NOTE | 2025-05-06 19:28 | HP ---
HISTORY AND PHYSICAL CHIEF COMPLAINT: Perforation of the right tympanic membrane. HISTORY OF PRESENT ILLNESS: This patient is a pleasant 74-year-old male who was recently seen in my office for evaluation of possible perforation of the right tympanic membrane. The patient is currently being fitted for a hearing aid at [facility]. He is noted to have profound left sensorineural hearing loss. At the time that he was seen in the office clinical examination of the ears revealed that there was a moderately large perforation in the right tympanic membrane. It was discussed with the patient that because of his age the success rate of a tympanoplasty is not very high. It was therefore recommended that he undergo insertion of cartouche patch. Unfortunately, the cartouche patches have been discontinued, however, the nursing staff were able to find a few remnants left over in the hospital's stockpile. We are going to recommend he undergo insertion of a right cartouche patch and at that time if the patch is too large we will trim it down to fit. PAST MEDICAL HISTORY: Reveals that he has no allergies to medications. CURRENT MEDICATIONS: Include, 1. Lisinopril. 2. Metformin. 3. Glipizide. 4. Atorvastatin. 5. Claritin. REVIEW OF SYSTEMS: CARDIOVASCULAR: Positive for hypertension. METABOLIC/ENDOCRINE: Positive for type 2 diabetes mellitus and hypercholesterolemia. MUSCULOSKELETAL: Negative. Remainder of the review of systems is essentially unremarkable. OBJECTIVE: HEENT: The patient is normocephalic. Examination right ear reveals a moderately large central perforation of the right tympanic membrane. The middle ear ossicles appear to be intact and middle ear space is free of any fluid or infection. Examination left ear is unremarkable. Pupils equal, round, reactive to light and accommodation. Extraocular movements within normal limits. Intranasal examination reveals moderately severe septal deviation to the left with bilateral hypertrophy of the inferior turbinates. Examination of the oropharynx, cranial nerves 2 through 12 and remainder of the head and neck exam are all within normal limits. CHEST/CARDIOVASCULAR: Both lung miguel are clear to percussion and auscultation. The patient is in regular sinus rhythm. S1 and S2 are present without any murmurs, S3s, or S4s. Peripheral pulses are bilaterally symmetrical. ABDOMEN: There is no evidence any masses, megaly or tenderness. The abdomen is soft. SKIN: Unremarkable. MUSCULOSKELETAL AND NEUROLOGICAL: Within normal limits. RECTAL: The rectal exam is deferred at this time because the patient has done on a regular basis at his family doctor's office. The remainder of physical exam is unremarkable. ASSESSMENT: Central perforation of the right tympanic membrane. PLAN: The patient is scheduled to undergo insertion of a cartouche patch to a perforation of the right tympanic membrane under IV sedation with M.A.C. Attention RNs in the pre-surgical area, I have not ordered any pre-surgical prophylactic antibiotics for this patient. If the pharmacy department sends any pre- surgical prophylactic antibiotics to the pre-surgical area for this patient, that order should be cancelled, and the medication should be returned to the pharmacy department. Also please make sure that the patient's account is credited appropriately. I have discussed the risks, benefits and alternative therapies for the above-mentioned procedure and for both sedation/analgesia as well as necessary blood product administration, if indicated, as they pertain to this patient. The patient has indicated his or her understanding and acceptance of the risks and procedures discussed. MMJENNIFERL / JOSE ANTONION: [id number] /
[~2025-05-07 10:50] MED LIST changes: -LACTATED RINGERS 1,000 ML IV SCH; +Pre Op ABX Message 1 EACH MISC MISCELLANE ONE
[2025-05-07] MEDS: IV FLUID CONTINUATION 1,000 ML IV ONE (11:05)
[2025-05-07] MEDS ORDERED: HYDROmorphone 0.5 MG/0.5 ML SYRINGE IVP PRN (11:20)
[2025-05-07] MEDS ORDERED: MIDAZOLAM 2 MG/2 ML VIAL IV PRN (11:20)
[2025-05-07] MEDS ORDERED: fentaNYL (PF) 50 MCG/ML 2 ML AMP IVP PRN (11:20)
[2025-05-07] MEDS ORDERED: LIDOCAINE 1% (10MG/ML) FOR IV START INTRADERMA PRN (11:20)
[2025-05-07 11:40] VITALS: TEMP 97.2
[2025-05-07 11:42] LABS: Glucose,Whole Blood 145 mg/dL (70-110)
[2025-05-07] MEDS: DEXAMETHASONE SOD PHOSPHATE 4 MG/ML 1 ML VIAL IV ONE (11:45)
[2025-05-07] MEDS: LACTATED RINGERS 1,000 ML IV SCH (11:45)
[2025-05-07] MEDS: ONDANSETRON 4 MG/2 ML VIAL IVP ONE (11:46)
[2025-05-07] MEDS ORDERED: PROPOFOL 10 MG/ML 20 ML VIAL IV ONE (12:46)
[2025-05-07] MEDS ORDERED: PHENYLEPHRINE-0.9% NACL SYG 1,000 MCG/10 ML SYRINGE ONE (12:46)
[2025-05-07] MEDS ORDERED: fentaNYL (PF) 50 MCG/ML 2 ML AMP ONE (12:46)
[2025-05-07] MEDS ORDERED: MIDAZOLAM 2 MG/2 ML VIAL ONE (12:46)
[2025-05-07] MEDS: OFLOXACIN 0.3% OPHTH DROPS 5 ML BOTTLE RIGHT EAR ONE ×2 (13:03→13:40)
[2025-05-07 13:59] VITALS: RESP 12
[2025-05-07 14:13] VITALS: BP 109/58; PULSE 79
--- NOTE | 2025-05-09 17:22 | OP ---
OPERATIVE REPORT DATE OF SERVICE : PREOPERATIVE DIAGNOSIS: Perforation of the right tympanic membrane. POSTOPERATIVE DIAGNOSIS: Perforation of the right tympanic membrane. ANESTHESIA: IV sedation with MAC. OPERATIVE PROCEDURE: Insertion of 7-mm Kartush patch to the perforation of the right tympanic membrane. COMPLICATIONS: None. DESCRIPTION OF PROCEDURE: The patient was placed on the operating room table in supine position and after uneventful IV sedation, satisfactory sedation was obtained. Next, the patient's right ear was draped in usual customary fashion. Following this, using a #3 aural speculum and the Zeiss operating microscope, the right ear was cleansed of all wax and debris in the usual fashion. It was noted that the perforation was noted more posteriorly and superiorly in the right tympanic membrane. Right middle ear space appeared to be free of any fluid, pus, etc. Next, because it was only a 10 mm Kartush patch available, this 10 mm patch was trimmed down to approximately 7 or 8 mm using a pair of sharp angled Whitten scissors. Next, using a pair of alligator forceps and annulus elevator, the patch was manipulated into position in the perforation of the right tympanic membrane. The patch was then manipulated so as to completely cover the entire perforation. It was to be noted that this was not an exact fit because the patch had to be trimmed. At this point, the procedure was terminated. There were no intraoperative complications. The patient tolerated the procedure well and was returned to the recovery room in satisfactory condition. MMODL / IJN: [id number] /
== END 2025-05-07 14:30 | disposition home or self-care (01) ==
LOC: OR 10:50
PROVIDERS: ATTEND Otolaryngology
DX: H72.01 Central perforation of tympanic membrane, right ear (principal); I10 Essential (primary) hypertension; E11.8 Type 2 diabetes mellitus with unspecified complications; E78.00 Pure hypercholesterolemia, unspecified; G47.33 Obstructive sleep apnea (adult) (pediatric); J44.9 Chronic obstructive pulmonary disease, unspecified; J34.2 Deviated nasal septum; J34.3 Hypertrophy of nasal turbinates; Z79.84 Long term (current) use of oral hypoglycemic drugs; Z79.899 Other long term (current) drug therapy; Z87.891 Personal history of nicotine dependence
CPT/HCPCS: 69610; J1100; J2405